=== PATIENT | female | born 1965 | race American Indian/Alaskan Native ===

== ENCOUNTER 2020-06-05 16:16 | Inpatient (IN) | payer MEDICARE ==
--- NOTE | 2020-06-05 17:03 | Event Note ---
ED Screening Note Date of service: 06/05/20 Time: 16:58 ED Screening Note: This is a 55-year-old diabetic who presents to ED from Dr. HINDS's office for evaluation of possible diabetic infected left big toe. Patient states she has been having pain to the toe radiating up forwards and swelling to the whole foot. This initial assessment/diagnostic orders/clinical plan/treatment(s) is/are subject to change based on patients health status, clinical progression and re- assessment by fellow clinical providers in the ED. Further treatment and workup at subsequent clinical providers discretion. Patient/guardian urged not to elope from the ED as their condition may be serious if not clinically assessed and managed. Initial orders include: Labs ordered, IV meds and antibiotic To be evaluated by the ED
[2020-06-05] MEDS ORDERED: VANCOMYCIN/NS 1 GM/250 ML 1 GM/250 ML BAG IV ONE (17:48)
[2020-06-05 17:51] LABS: Basophils % (Auto) 0.6 % (0.0-1.8); Eosinophils # (Auto) 0.2 K/mm3 (0.0-0.4); Eosinophils % (Auto) 2.6 % (0.0-4.3); Hematocrit 34.5 % (30.3-42.9); Hemoglobin 11.1 gm/dl (10.1-14.3); Lymphocytes # (Auto) 2.2 K/mm3 (1.2-5.4); Lymphocytes % (Auto) 33.1 % (13.4-35.0); Mean Corpuscular HGB Conc 32 % (30-34); Mean Corpuscular Volume 89 fl (79-97); Monocytes # (Auto) 0.6 K/mm3 (0.0-0.8); Monocytes % (Auto) 8.4 % (0.0-7.3); Platelet Count 333 K/mm3 (140-440); Red Blood Count 3.89 M/mm3 (3.65-5.03); Red Cell Distribution Width 14.7 % (13.2-15.2)
--- NOTE | 2020-06-05 17:54 | Emergency Department Report ---
ED General Adult HPI - General Chief complaint: Wound/Laceration Stated complaint: RIGHT BIG TOE INFECTION Time Seen by Provider: 06/05/20 17:47 Source: patient Mode of arrival: Ambulatory Limitations: No Limitations - History of Present Illness Initial comments: Patient presents to the emergency department with a chief complaint of right great toe pain. Patient states she is approximately 1 week status post atherosclerotic procedure to open up her arteries and veins in her right leg. Patient states that her ulcer on her right toe was doing well until approximately 2 days ago when it became painful and appeared not to be healing. Patient states he went to her primary care doctor today and upon evaluation she says she was told to get in contact with Dr. Saucedo who did the procedure on the patient. The patient states she believes she has stage III renal disease - Related Data Allergies Allergy/AdvReac Type Severity Reaction Status Date / Time No Known Allergies Allergy Unverified 06/05/20 16:20 ED Review of Systems ROS: Stated complaint: RIGHT BIG TOE INFECTION Other details as noted in HPI Comment: All other systems reviewed and negative Constitutional: denies: chills, fever Eyes: denies: eye pain, eye discharge, vision change ENT: denies: ear pain, throat pain Respiratory: denies: cough, shortness of breath, wheezing Cardiovascular: denies: chest pain, palpitations Endocrine: no symptoms reported Gastrointestinal: denies: abdominal pain, nausea, diarrhea Genitourinary: denies: urgency, dysuria, discharge Musculoskeletal: denies: back pain, joint swelling, arthralgia Skin: denies: rash, lesions Neurological: denies: headache, weakness, paresthesias Psychiatric: denies: anxiety, depression Hematological/Lymphatic: denies: easy bleeding, easy bruising ED Past Medical Hx - Past Medical History Hx Hypertension: Yes Hx Diabetes: Yes - Surgical History Additional Surgical History: FOOT SURGERY TO OPEN VEIN UP IN FOOT - Social History Smoking Status: Never Smoker Substance Use Type: Alcohol ED Physical Exam - General Limitations: No Limitations General appearance: alert, in no apparent distress - Head Head exam: Present: atraumatic, normocephalic - Eye Eye exam: Present: normal appearance, PERRL, EOMI - ENT ENT exam: Present: mucous membranes moist - Neck Neck exam: Present: normal inspection - Respiratory Respiratory exam: Present: normal lung sounds bilaterally. Absent: respiratory distress - Cardiovascular Cardiovascular Exam: Present: regular rate, normal rhythm. Absent: systolic murmur, diastolic murmur, rubs, gallop - GI/Abdominal GI/Abdominal exam: Present: soft, normal bowel sounds. Absent: distended, ten derness - Extremities Exam Extremities exam: Present: normal inspection - Back Exam Back exam: Present: normal inspection - Neurological Exam Neurological exam: Present: alert, oriented X3, CN II-XII intact. Absent: motor sensory deficit - Psychiatric Psychiatric exam: Present: normal affect, normal mood - Skin Skin exam: Present: warm, dry, intact, normal color, other (Patient has an ulcer to the medial aspect of the right great toe with a dry gangrene. There is delayed cap refill to the right great toe. There is also some cellulitis surrounding the ulcer) ED Course Vital Signs 06/05/20 06/05/20 06/05/20 16:23 18:17 18:30 Temperature 98.1 F Pulse Rate 91 H 83 Respiratory 18 18 12 Rate Blood Pressure 182/73 173/81 O2 Sat by Pulse 100 100 Oximetry 06/05/20 06/05/20 19:00 19:30 Temperature Pulse Rate 85 82 Respiratory 12 21 Rate Blood Pressure 171/84 169/90 O2 Sat by Pulse 100 100 Oximetry ED Medical Decision Making - Lab Data Result diagrams: 06/05/20 17:01 06/05/20 17:01 Lab Results 06/05/20 06/05/20 06/05/20 Range/Units 17:01 17:01 17:01 WBC 6.7 (4.5-11.0) K/mm3 RBC 3.89 (3.65-5.03) M/mm3 Hgb 11.1 (10.1-14.3) gm/dl Hct 34.5 (30.3-42.9) % MCV 89 (79-97) fl MCH 29 (28-32) pg MCHC 32 (30-34) % RDW 14.7 (13.2-15.2) % Plt Count 333 (140-440) K/mm3 Lymph % (Auto) 33.1 (13.4-35.0) % [place] % (Auto) 8.4 H (0.0-7.3) % Eos % (Auto) 2.6 (0.0-4.3) % Baso % (Auto) 0.6 (0.0-1.8) % Lymph # (Auto) 2.2 (1.2-5.4) K/mm3 [place] # (Auto) 0.6 (0.0-0.8) K/mm3 Eos # (Auto) 0.2 (0.0-0.4) K/mm3 Baso # (Auto) 0.0 (0.0-0.1) K/mm3 Seg Neutrophils % 55.3 (40.0-70.0) % Seg Neutrophils # 3.7 (1.8-7.7) K/mm3 Sodium 141 (137-145) mmol/L Potassium 4.6 (3.6-5.0) mmol/L Chloride 105.0 (98-107) mmol/L Carbon Dioxide 24 (22-30) mmol/L Anion Gap 17 mmol/L BUN 46 H (7-17) mg/dL Creatinine 2.3 H (0.6-1.2) mg/dL Estimated GFR 27 ml/min BUN/Creatinine Ratio 20 % Glucose 285 H (65-100) mg/dL Lactic Acid 1.30 (0.7-2.0) mmol/L Calcium 9.2 (8.4-10.2) mg/dL Total Bilirubin 0.30 (0.1-1.2) mg/dL AST 18 (5-40) units/L ALT 42 (7-56) units/L Alkaline Phosphatase 100 (35-129) units/L Total Protein 6.5 (6.3-8.2) g/dL Albumin 3.6 L (3.9-5) g/dL Albumin/Globulin Ratio 1.2 % - Radiology Data Radiology results: report reviewed - Medical Decision Making Spoke with Dr. Adrian the patient was discussed Patient will be admitted for IV antibiotics and for a possible vascular procedure during admission Critical care attestation.: If time is entered above; I have spent that time in minutes in the direct care of this critically ill patient, excluding procedure time. ED Disposition Clinical Impression: Dry gangrene, Cellulitis of great toe of right foot Disposition: DC- TO HOME OR SELFCARE Is pt being admited?: Yes Does the pt Need Aspirin: No Condition: Fair Referrals: SUZANNA JOSEPH [Other] - 3-5 Days
[2020-06-05] MEDS ORDERED: SODIUM CHLORIDE 0.9% 1000 ML 1,000 ML IV SCH (18:00)
[2020-06-05 18:11] LABS: Albumin 3.6 g/dL (3.9-5); Calcium 9.2 mg/dL (8.4-10.2)
--- NOTE | 2020-06-05 18:28 | XRay Report ---
XR foot 2V RT INDICATION / CLINICAL INFORMATION: great toe osteo. COMPARISON: None available FINDINGS: There is soft tissue swelling of the dorsum of the foot and involving the great toe, greatest at the medial aspect of the first MTP joint. No discrete skin ulceration is identified. There is hallux valg us with osteoarthritis of the first MTP as well as scattered IP joints. No aggressive cortical destru ctive changes identified. Lisfranc interval is preserved. IMPRESSION: Soft tissue swelling of the dorsum of the foot and about the right great toe. No radiogra phic evidence of osteomyelitis at this time. Signer Name: Jonatan Leavitt MD Signed: 06/05/2020 6:23 PM Workstation Name: [id number]
[2020-06-05] MEDS ORDERED: ACETAMINOPHEN 325 MG TAB PO PRN (22:09)
[2020-06-05] MEDS ORDERED: ONDANSETRON 4 MG/2 ML INJ IV PRN (22:09)
[2020-06-05] MEDS ORDERED: DEXTROSE 50% IN WATER (25GM) 50 ML SYRINGE IV PRN ×2 (22:09→22:13)
--- NOTE | 2020-06-05 22:18 | History and Physical Report ---
History of Present Illness Date of examination: 06/05/20 Chief complaint: Right great toe infection Peripheral vascular disease History of present illness: 55 years old female with history of diabetes and hypertension , chronic kidney disease stage III was brought to the hospital of right great toe pain. Patient is status post atherosclerotic procedure to open up her arteries and veins in her right leg about 1 week ago. Patient states that her ulcer on her right toe was doing well until approximately 2 days ago when it became painful and appeared not to be healing. Patient states he went to her primary care doctor today and upon evaluation she says she was told to get in contact with Dr. Saucedo who did the procedure on the patient. Past History Past Medical History: diabetes, hypertension, PVD Medications and Allergies Allergies Allergy/AdvReac Type Severity Reaction Status Date / Time No Known Allergies Allergy Unverified 06/05/20 16:20 Active Meds: Active Medications Acetaminophen (Acetaminophen 325 Mg Tab) 650 mg PO Q4H PRN PRN Reason: Pain MILD(1-3)/Fever >100.5/[place] Dextrose (Dextrose 50% In Water (25gm) 50 Ml Syringe) 50 ml IV Q30MIN PRN; Protocol PRN Reason: Hypoglycemia Dextrose (Dextrose 50% In Water (25gm) 50 Ml Syringe) 50 ml IV Q30MIN PRN; Protocol PRN Reason: Hypoglycemia Famotidine (Famotidine 20 Mg Tab) 20 mg PO BID ERNIE Heparin Sodium (Porcine) (Heparin 5,000 Unit/1 Ml Vial) 5,000 unit SUB-Q Q8HR ERNIE Sodium Chloride (Nacl 0.9% 1000 Ml) 1,000 mls @ 150 mls/hr IV DIRECT ERNIE Last Admin: 06/05/20 18:52 Dose: 150 mls/hr Documented by: Sodium Chloride (Nacl 0.45% 1000 Ml) 1,000 mls @ 100 mls/hr IV DIRECT ERNIE Piperacillin Sod/Tazobactam Sod (Zosyn/Ns 3.375gm/50ml) 3.375 gm in 50 mls @ 100 mls/hr IV Q8H ERNIE; Protocol Vancomycin HCl (Vancomycin/Ns 1 Gm/250 Ml) 1 gm in 250 mls @ 166.667 mls/hr IV Q12H ERNIE; Protocol Morphine Sulfate (Morphine 2 Mg/1 Ml Inj) 2 mg IV Q4H PRN PRN Reason: Pain, Moderate (4-6) Ondansetron HCl (Ondansetron 4 Mg/2 Ml Inj) 4 mg IV Q8H PRN PRN Reason: Nausea And Vomiting Sodium Chloride (Sodium Chloride 0.9% 10 Ml Flush Syringe) 10 ml IV BID ERNIE Sodium Chloride (Sodium Chloride 0.9% 10 Ml Flush Syringe) 10 ml IV PRN PRN PRN Reason: LINE FLUSH Review of Systems Integumentary: sores, wounds, foot/leg ulcers Exam - Constitutional Vitals: Temp Pulse Resp BP Pulse Ox 98.1 F 82 21 169/90 100 06/05/20 16:23 06/05/20 19:30 06/05/20 19:30 06/05/20 19:30 06/05/20 19:30 General appearance: Present: no acute distress, well-nourished - EENT Eyes: Present: PERRL ENT: hearing intact, clear oral mucosa - Neck Neck: Present: supple, normal ROM - Respiratory Respiratory effort: normal Respiratory: bilateral: CTA - Cardiovascular Heart Sounds: Present: S1 & S2. Absent: rub, click - Extremities Extremities: pulses symmetrical, No edema, abnormal (Right great toe ulcer) Peripheral Pulses: within normal limits - Abdominal General gastrointestinal: Present: soft, non-tender, non-distended, normal bowel sounds Female genitourinary: Present: normal - Integumentary Integumentary: Present: clear, warm, dry - Musculoskeletal Musculoskeletal: gait normal, strength equal bilaterally - Psychiatric Psychiatric: appropriate mood/affect, intact judgment & insight - Neurologic Neurologic: CNII-XII intact, moves all extremities Results - Labs CBC & Chem 7: 06/05/20 17:01 06/05/20 17:01 Labs: Laboratory Last Values WBC 6.7 K/mm3 (4.5-11.0) 06/05/20 17: RBC 3.89 M/mm3 (3.65-5.03) 06/05/20 17:01 Hgb 11.1 gm/dl (10.1-14.3) 06/05/20 17:01 Hct 34.5 % (30.3-42.9) 06/05/20 17:01 MCV 89 fl (79-97) 06/05/20 17:01 MCH 29 pg (28-32) 06/05/20 17:01 MCHC 32 % (30-34) 06/05/20 17:01 RDW 14.7 % (13.2-15.2) 06/05/20 17:01 Plt Count 333 K/mm3 (140-440) 06/05/20 17:01 Lymph % (Auto) 33.1 % (13.4-35.0) 06/05/20 17:01 [place] % (Auto) 8.4 % (0.0-7.3) H 06/05/20 17:01 Eos % (Auto) 2.6 % (0.0-4.3) 06/05/20 17:01 Baso % (Auto) 0.6 % (0.0-1.8) 06/05/20 17:01 Lymph # (Auto) 2.2 K/mm3 (1.2-5.4) 06/05/20 17:01 [place] # (Auto) 0.6 K/mm3 (0.0-0.8) 06/05/20 17:01 Eos # (Auto) 0.2 K/mm3 (0.0-0.4) 06/05/20 17:01 Baso # (Auto) 0.0 K/mm3 (0.0-0.1) 06/05/20 17:01 Seg Neutrophils % 55.3 % (40.0-70.0) 06/05/20 17:01 Seg Neutrophils # 3.7 K/mm3 (1.8-7.7) 06/05/20 17:01 Sodium 141 mmol/L (137-145) 06/05/20 17:01 Potassium 4.6 mmol/L (3.6-5.0) 06/05/20 17:01 Chloride 105.0 mmol/L (98-107) 06/05/20 17:01 Carbon Dioxide 24 mmol/L (22-30) 06/05/20 17:01 Anion Gap 17 mmol/L 06/05/20 17:01 BUN 46 mg/dL (7-17) H 06/05/20 17:01 Creatinine 2.3 mg/dL (0.6-1.2) H 06/05/20 17:01 Estimated GFR 27 ml/min 06/05/20 17:01 BUN/Creatinine Ratio 20 % 06/05/20 17:01 Glucose 285 mg/dL (65-100) H 06/05/20 17:01 Lactic Acid 1.30 mmol/L (0.7-2.0) 06/05/20 17:01 Calcium 9.2 mg/dL (8.4-10.2) 06/05/20 17:01 Total Bilirubin 0.30 mg/dL (0.1-1.2) 06/05/20 17:01 AST 18 units/L (5-40) 06/05/20 17:01 ALT 42 units/L (7-56) 06/05/20 17:01 Alkaline Phosphatase 100 units/L (35-129) 06/05/20 17:01 Total Protein 6.5 g/dL (6.3-8.2) 06/05/20 17:01 Albumin 3.6 g/dL (3.9-5) L 06/05/20 17:01 Albumin/Globulin Ratio 1.2 % 06/05/20 17:01 Microbiology: Microbiology 06/05/20 17:57 Peripheral/Venous Blood Culture - Preliminary Culture in Progress 06/05/20 17:57 Peripheral/Venous Blood Culture - Preliminary Culture in Progress Assessment and Plan - Patient Problems (1) Cellulitis of great toe of right foot Current Visit: Yes Status: Acute Plan to address problem: Admit patient to the medical floor. Zosyn 3.375 g IV every 8 hours and vancomycin 1 g IV every 12 hours. We do the blood culture wound culture. We also consult vascular surgeon as well as wound care doctor. Heparin 5000 units subcu every 8 hours for DVT prophylaxis and Pepcid 20 mg p.o. twice daily for GI prophylaxis. Recheck CBC BMP in the morning (2) Dry gangrene Current Visit: Yes Status: Acute Plan to address problem: Zosyn 3.375 g IV every 8 hours and vancomycin 1 g IV every 12 hours. We do the blood culture wound culture. We also consult vascular surgeon as well as wound care doctor. Heparin 5000 units subcu every 8 hours for DVT prophylaxis and Pepcid 20 mg p.o. twice daily for GI prophylaxis. Recheck CBC BMP in the morning (3) Diabetes type 2, controlled Current Visit: Yes Status: Acute Plan to address problem: 1800 kcal ADA diet. We also put the patient on Humalog moderate dose sliding scale Accu-Chek before meals and at bedtime. Will consult diabetic education. Recheck CBC BMP in the morning. (4) Hypertension Current Visit: Yes Status: Acute Plan to address problem: We will monitor the blood pressure closely. We put the patient on hydralazine 10 mg IV every 6 hours as needed.
[2020-06-05] MEDS ORDERED: hydrALAZINE 20 MG/1 ML INJ IV PRN ×2 (22:21→22:45)
[2020-06-05] MEDS: MORPHINE 2 MG/1 ML INJ IV PRN (22:51)
[2020-06-05] MEDS ORDERED: PIPERACILLIN/TAZOBACTAM 3.375 3.375 GM/50 ML BAG IV SCH (23:00)
[2020-06-05] MEDS ORDERED: VANCOMYCIN PHARMACY TO DOSE IV SCH (23:00)
[2020-06-05] MEDS ORDERED: VANCOMYCIN/NS 1 GM/250 ML 1 GM/250 ML BAG IV SCH (23:00)
--- NOTE | 2020-06-05 23:31 | Event Note ---
Date: 06/05/20 Reviewed patient information. We will see the patient tomorrow, but in the interim, please obtain ID consult. Vancomycin and zosyn is a very nephrotoxic combination. ID will probably replace vancomycin with linezolid to decrease nephrotoxicity.
[2020-06-06] MEDS: CILOSTAZOL 100 MG TAB PO SCH ×3 (01:32→21:32)
[2020-06-06] MEDS: SODIUM CHLORIDE 0.45% 1000 ML 1,000 ML IV SCH (01:33)
[2020-06-06] MEDS: MORPHINE 2 MG/1 ML INJ IV PRN ×3 (03:26→22:02)
[2020-06-06] MEDS: HEPARIN 5,000 UNIT/1 ML VIAL SUB-Q SCH ×3 (05:38→21:34)
[2020-06-06 06:18] LABS: Basophils % (Auto) 0.6 % (0.0-1.8); Eosinophils # (Auto) 0.2 K/mm3 (0.0-0.4); Eosinophils % (Auto) 3.1 % (0.0-4.3); Hematocrit 30.6 % (30.3-42.9); Hemoglobin 10.1 gm/dl (10.1-14.3); Lymphocytes # (Auto) 2.5 K/mm3 (1.2-5.4); Lymphocytes % (Auto) 40.9 % (13.4-35.0); Mean Corpuscular HGB Conc 33 % (30-34); Mean Corpuscular Volume 88 fl (79-97); Monocytes # (Auto) 0.6 K/mm3 (0.0-0.8); Monocytes % (Auto) 9.5 % (0.0-7.3); Platelet Count 296 K/mm3 (140-440); Red Blood Count 3.48 M/mm3 (3.65-5.03); Red Cell Distribution Width 14.6 % (13.2-15.2)
[2020-06-06 06:34] LABS: Calcium 8.3 mg/dL (8.4-10.2)
[2020-06-06] MEDS ORDERED: VANCOMYCIN 1,500 MG in SODIUM CHLORIDE 0.9% 500 ML 500 ML IV SCH (08:00)
[2020-06-06] MEDS: PANTOPRAZOLE 40 MG TAB PO SCH (08:50)
[2020-06-06] MEDS: INSULIN LISPRO 100 UNIT/ML SUB-Q SCH ×4 (08:50→23:54)
[2020-06-06] MEDS ORDERED: metroNIDAZOLE/NS 500 MG/100 ML 500 MG/100 ML BAG IV SCH (09:00)
[2020-06-06] MEDS: CEFEPIME/NS 1 GM/100 ML 1 GM/100 ML BAG IV SCH ×2 (09:55→21:34)
[2020-06-06] MEDS: CLOPIDOGREL 75 MG TAB PO SCH (09:56)
[2020-06-06] MEDS: ASPIRIN EC 81 MG TAB PO SCH (09:56)
[2020-06-06] MEDS ORDERED: FAMOTIDINE 20 MG TAB PO SCH (10:00)
[2020-06-06] MEDS ORDERED: VANCOMYCIN/NS 1 GM/250 ML 1 GM/250 ML BAG IV ONE (10:00)
[2020-06-06] MEDS ORDERED: FAMOTIDINE 10 MG TAB PO SCH (10:00)
--- NOTE | 2020-06-06 10:47 | Consultation ---
History of Present Illness Consult date: 06/06/20 Chief complaint: Right great toe pain - History of present illness History of present illness: 55 yo diabetic female who is about 10 days s/p a revascularization procedure to her RLE by Dr. Saucedo. About 5 days ago, she began having right great toe pain and noticed some discoloration of the right great toe. Her last A1c was in the 8's. She does not smoke. Past History Past Medical History: diabetes, hypertension, PVD Medications and Allergies Allergies Allergy/AdvReac Type Severity Reaction Status Date / Time No Known Allergies Allergy Unverified 06/05/20 16:20 Active Meds: Active Medications Acetaminophen (Acetaminophen 325 Mg Tab) 650 mg PO Q4H PRN PRN Reason: Pain MILD(1-3)/Fever >100.5/[place] Aspirin (Aspirin Ec 81 Mg Tab) 81 mg PO QDAY [facility] Last Admin: 06/06/20 09:56 Dose: 81 mg Documented by: Cilostazol (Cilostazol 100 Mg Tab) 100 mg PO BID [facility] Last Admin: 06/06/20 09:56 Dose: 100 mg Documented by: Clopidogrel Bisulfate (Clopidogrel 75 Mg Tab) 75 mg PO QDAY [facility] Last Admin: 06/06/20 09:56 Dose: 75 mg Documented by: Dextrose (Dextrose 50% In Water (25gm) 50 Ml Syringe) 50 ml IV Q30MIN PRN; Protocol PRN Reason: Hypoglycemia Heparin Sodium (Porcine) (Heparin 5,000 Unit/1 Ml Vial) 5,000 unit SUB-Q Q8HR [facility] Last Admin: 06/06/20 05:38 Dose: 5,000 unit Documented by: Hydralazine HCl (Hydralazine 20 Mg/1 Ml Inj) 5 mg IV Q30MIN PRN PRN Reason: Hypertension Sodium Chloride (Nacl 0.45% 1000 Ml) 1,000 mls @ 100 mls/hr IV DIRECT ERNIE Last Admin: 06/06/20 01:33 Dose: 100 mls/hr Documented by: Vancomycin HCl (Vancomycin/Ns 1 Gm/250 Ml) 1 gm in 250 mls @ 167.007 mls/hr IV ONCE ONE Stop: 06/06/20 11:29 Cefepime HCl (Cefepime/Ns 1 Gm/100 Ml) 1 gm in 100 mls @ 200 mls/hr IV Q12H ERNIE; Protocol Last Admin: 06/06/20 09:55 Dose: 200 mls/hr Documented by: Metronidazole (Flagyl 500 Mg/100 Ml) 500 mg in 100 mls @ 100 mls/hr IV Q8H [facility]; Protocol Last Admin: 06/06/20 08:58 Dose: 100 mls/hr Documented by: Insulin Human Lispro (Insulin Lispro 100 Unit/Ml) 0 unit SUB-Q ACHS [facility]; Protocol Last Admin: 06/06/20 08:50 Dose: Not Given Documented by: Morphine Sulfate (Morphine 2 Mg/1 Ml Inj) 2 mg IV Q4H PRN PRN Reason: Pain, Moderate (4-6) Last Admin: 06/06/20 03:26 Dose: 2 mg Documented by: Ondansetron HCl (Ondansetron 4 Mg/2 Ml Inj) 4 mg IV Q8H PRN PRN Reason: Nausea And Vomiting Pantoprazole Sodium (Pantoprazole 40 Mg Tab) 40 mg PO QDAC [facility] Last Admin: 06/06/20 08:50 Dose: 40 mg Documented by: Sodium Chloride (Sodium Chloride 0.9% 10 Ml Flush Syringe) 10 ml IV BID [facility] Last Admin: 06/06/20 09:55 Dose: 10 ml Documented by: Sodium Chloride (Sodium Chloride 0.9% 10 Ml Flush Syringe) 10 ml IV PRN PRN PRN Reason: LINE FLUSH Review of Systems All systems: negative (none) Exam Vital Signs Temp Pulse Resp BP Pulse Ox 98.1 F 91 H 18 182/73 100 06/05/20 16:23 06/05/20 16:23 06/05/20 16:23 06/05/20 16:23 06/05/20 16:23 - General physical appearance Positive: well developed, well nourished, no distress - Eyes Positive: PERRL, normal occular movement - ENT Positive: normal pinna, normal nares, normal mucosa, no hearing loss, no congestion - Neck Positive: no masses, no bruits, trachea midline, no venous distension - Respiratory Positive: normal expansion, normal respiratory effort, clear to auscultation - Cardiovascular Rhythm: regular Heart Sounds: Present: S1 & S2. Absent: rub, click - Extremities Extremities: no ischemia, pulses symmetrical, No edema Peripheral Pulses: abnormal (Right DP and PT pulses are non-palpable.) - Breasts Breasts: normal, no mass, no skin changes - Abdomen Abdomen: Present: soft, bowel sounds normal. Absent: tender, distended Hernia: none - Genitourinary Male Genitourinary: normal Female Genitourinary: normal - Integumentary no rash, no growths, no abnormal pigmentation, other (There is a 3 X 1 cm ischemic appearing area of skin/callus over the medial right great toe. There is no associated drainage, cellulitis or fluctuance. The right great toe is tender to touch.) - Neurologic Neurologic: alert and oriented to time, place and person, motor strength and sensation are grossly intact - Musculoskeletal normal gait, normal posture - Psychiatric Psychiatric: appropriate mood/affect, intact judgment & insight Results - Labs 06/06/20 05:57 06/06/20 05:57 Abnormal lab results 06/05/20 06/05/20 06/05/20 Range/Units 17:01 17:01 22:57 RBC (3.65-5.03) M/mm3 Lymph % (Auto) (13.4-35.0) % [place] % (Auto) 8.4 H (0.0-7.3) % Chloride (98-107) mmol/L BUN 46 H (7-17) mg/dL Creatinine 2.3 H (0.6-1.2) mg/dL Glucose 285 H (65-100) mg/dL POC Glucose 250 H (70-105) mg/dL Calcium (8.4-10.2) mg/dL Albumin 3.6 L (3.9-5) g/dL 06/06/20 06/06/20 06/06/20 Range/Units 05:57 05:57 08:16 RBC 3.48 L (3.65-5.03) M/mm3 Lymph % (Auto) 40.9 H (13.4-35.0) % [place] % (Auto) 9.5 H (0.0-7.3) % Chloride 108.9 H (98-107) mmol/L BUN 36 H (7-17) mg/dL Creatinine 2.2 H (0.6-1.2) mg/dL Glucose 154 H (65-100) mg/dL POC Glucose 149 H (70-105) mg/dL Calcium 8.3 L (8.4-10.2) mg/dL Albumin (3.9-5) g/dL Diabetes panel 06/05/20 06/06/20 Range/Units 17:01 05:57 Sodium 141 141 (137-145) mmol/L Potassium 4.6 4.0 (3.6-5.0) mmol/L Chloride 105.0 108.9 H (98-107) mmol/L Carbon Dioxide 24 25 (22-30) mmol/L BUN 46 H 36 H (7-17) mg/dL Creatinine 2.3 H 2.2 H (0.6-1.2) mg/dL Glucose 285 H 154 H (65-100) mg/dL Calcium 9.2 8.3 L (8.4-10.2) mg/dL AST 18 (5-40) units/L ALT 42 (7-56) units/L Alkaline Phosphatase 100 (35-129) units/L Total Protein 6.5 (6.3-8.2) g/dL Albumin 3.6 L (3.9-5) g/dL Calcium panel 06/05/20 06/06/20 Range/Units 17:01 05:57 Calcium 9.2 8.3 L (8.4-10.2) mg/dL Albumin 3.6 L (3.9-5) g/dL Pituitary panel 06/05/20 06/06/20 Range/Units 17:01 05:57 Sodium 141 141 (137-145) mmol/L Potassium 4.6 4.0 (3.6-5.0) mmol/L Chloride 105.0 108.9 H (98-107) mmol/L Carbon Dioxide 24 25 (22-30) mmol/L BUN 46 H 36 H (7-17) mg/dL Creatinine 2.3 H 2.2 H (0.6-1.2) mg/dL Glucose 285 H 154 H (65-100) mg/dL Calcium 9.2 8.3 L (8.4-10.2) mg/dL Adrenal panel 06/05/20 06/06/20 Range/Units 17:01 05:57 Sodium 141 141 (137-145) mmol/L Potassium 4.6 4.0 (3.6-5.0) mmol/L Chloride 105.0 108.9 H (98-107) mmol/L Carbon Dioxide 24 25 (22-30) mmol/L BUN 46 H 36 H (7-17) mg/dL Creatinine 2.3 H 2.2 H (0.6-1.2) mg/dL Glucose 285 H 154 H (65-100) mg/dL Calcium 9.2 8.3 L (8.4-10.2) mg/dL Total Bilirubin 0.30 (0.1-1.2) mg/dL AST 18 (5-40) units/L ALT 42 (7-56) units/L Alkaline Phosphatase 100 (35-129) units/L Total Protein 6.5 (6.3-8.2) g/dL Albumin 3.6 L (3.9-5) g/dL - Imaging Additional studies: Right foot x-ray was reviewed. Assessment and Plan - Patient Problems (1) Type 2 diabetes mellitus with foot ulcer Current Visit: Yes Status: Acute Plan to address problem: 1) Vascular evaluation by Dr. Saucedo. 2) Do not feel an MRI is indicated at this time. 3) Pt may need debridement of her right great toe. This will be considered after her vascular status is evaluated. 4) Strict DM management.
--- NOTE | 2020-06-06 12:48 | Progress Note ---
Assessment and Plan Assessment and plan: (1) Cellulitis of great toe of right foot Continue vancomycin, cefepime and Flagyl Wound culture Vascular surgery following ID consulted (2) Dry gangrene Current Visit: Yes Status: Acute Plan to address problem: Vascular surgery on board (3) Diabetes type 2, controlled Current Visit: Yes Status: Acute Plan to address problem: Insulin regimen (4) Hypertension Current Visit: Yes Status: Acute Plan to address problem: Hydralazine as needed History Interval history: No new complaints this AM Antibiotics adjusted Hospitalist Physical - Physical exam Narrative exam: VITAL SIGNS: Reviewed. GENERAL: Awake HEAD: No signs of head trauma. EYES: Pupils are equal. Extraocular motions intact. MOUTH: Oropharynx is normal. NECK: No adenopathy, no JVD. CHEST: Chest with diminished breath sounds bilaterally. No wheezes, rales, or rhonchi. CARDIAC: normal S1 and S2, without murmurs, gallops, or rubs. ABDOMEN: Soft, non tender and non distended. No rebound or guarding, and no masses palpated. Bowel Sounds normal. MUSCULOSKELETAL: No edema NEUROLOGIC EXAM: Alert and oriented x3. No focal neurologic deficits SKIN: No obvious lesions - Constitutional Vitals: Temp Pulse Resp BP Pulse Ox 97.9 F 90 20 149/65 100 06/06/20 10:17 06/06/20 10:17 06/06/20 10:17 06/06/20 10:17 06/06/20 10:17 Results - Labs CBC & Chem 7: 06/06/20 05:57 06/06/20 05:57 Labs: Laboratory Last Values WBC 6.1 K/mm3 (4.5-11.0) 06/06/20 05:57 RBC 3.48 M/mm3 (3.65-5.03) L 06/06/20 05:57 Hgb 10.1 gm/dl (10.1-14.3) 06/06/20 05:57 Hct 30.6 % (30.3-42.9) 06/06/20 05:57 MCV 88 fl (79-97) 06/06/20 05:57 MCH 29 pg (28-32) 06/06/20 05:57 MCHC 33 % (30-34) 06/06/20 05:57 RDW 14.6 % (13.2-15.2) 06/06/20 05:57 Plt Count 296 K/mm3 (140-440) 06/06/20 05:57 Lymph % (Auto) 40.9 % (13.4-35.0) H 06/06/20 05:57 [place] % (Auto) 9.5 % (0.0-7.3) H 06/06/20 05:57 Eos % (Auto) 3.1 % (0.0-4.3) 06/06/20 05:57 Baso % (Auto) 0.6 % (0.0-1.8) 06/06/20 05:57 Lymph # (Auto) 2.5 K/mm3 (1.2-5.4) 06/06/20 05:57 [place] # (Auto) 0.6 K/mm3 (0.0-0.8) 06/06/20 05:57 Eos # (Auto) 0.2 K/mm3 (0.0-0.4) 06/06/20 05:57 Baso # (Auto) 0.0 K/mm3 (0.0-0.1) 06/06/20 05:57 Seg Neutrophils % 45.9 % (40.0-70.0) 06/06/20 05:57 Seg Neutrophils # 2.8 K/mm3 (1.8-7.7) 06/06/20 05:57 Sodium 141 mmol/L (137-145) 06/06/20 05:57 Potassium 4.0 mmol/L (3.6-5.0) 06/06/20 05:57 Chloride 108.9 mmol/L (98-107) H 06/06/20 05:57 Carbon Dioxide 25 mmol/L (22-30) 06/06/20 05:57 Anion Gap 11 mmol/L 06/06/20 05:57 BUN 36 mg/dL (7-17) H 06/06/20 05:57 Creatinine 2.2 mg/dL (0.6-1.2) H 06/06/20 05:57 Estimated GFR 28 ml/min 06/06/20 05:57 BUN/Creatinine Ratio 16 % 06/06/20 05:57 Glucose 154 mg/dL (65-100) H 06/06/20 05:57 POC Glucose 241 mg/dL (70-105) H 06/06/20 11:35 Lactic Acid 1.30 mmol/L (0.7-2.0) 06/05/20 17:01 Calcium 8.3 mg/dL (8.4-10.2) L 06/06/20 05:57 Total Bilirubin 0.30 mg/dL (0.1-1.2) 06/05/20 17:01 AST 18 units/L (5-40) 06/05/20 17:01 ALT 42 units/L (7-56) 06/05/20 17:01 Alkaline Phosphatase 100 units/L (35-129) 06/05/20 17:01 Total Protein 6.5 g/dL (6.3-8.2) 06/05/20 17:01 Albumin 3.6 g/dL (3.9-5) L 06/05/20 17:01 Albumin/Globulin Ratio 1.2 % 06/05/20 17:01 Microbiology: Microbiology 06/05/20 17:57 Peripheral/Venous Blood Culture - Preliminary Culture in Progress 06/05/20 17:57 Peripheral/Venous Blood Culture - Preliminary Culture in Progress Bowman/IV: Voiding Method External Female Catheter Active Medications - Current Medications Current Medications: Generic Name Dose Route Start Last Admin Trade Name Freq PRN Reason Stop Dose Admin Acetaminophen 650 mg 06/05/20 22:09 Acetaminophen 325 Mg Tab PO Q4H PRN Pain MILD(1-3)/Fever >100.5/[place] Aspirin 81 mg 06/06/20 10:00 06/06/20 09:56 Aspirin Ec 81 Mg Tab PO 81 mg QDAY ERNIE Administration Cilostazol 100 mg 06/05/20 23:45 06/06/20 09:56 Cilostazol 100 Mg Tab PO 100 mg BID ERNIE Administration Clopidogrel Bisulfate 75 mg 06/06/20 10:00 06/06/20 09:56 Clopidogrel 75 Mg Tab PO 75 mg QDAY ERNIE Administration Dextrose 50 ml 06/05/20 22:09 Dextrose 50% In Water (25gm) 50 Ml Syringe IV Q30MIN PRN Hypoglycemia Protocol Heparin Sodium (Porcine) 5,000 unit 06/06/20 06:00 06/06/20 05:38 Heparin 5,000 Unit/1 Ml Vial SUB-Q 5,000 unit Q8HR ERNIE Administration Hydralazine HCl 5 mg 06/05/20 22:45 Hydralazine 20 Mg/1 Ml Inj IV Q30MIN PRN Hypertension Sodium Chloride 1,000 mls @ 100 mls/hr 06/05/20 23:00 06/06/20 01:33 Nacl 0.45% 1000 Ml IV 100 mls/hr DIRECT ERNIE Administration Cefepime HCl 1 gm in 100 mls @ 200 mls/hr 06/06/20 09:00 06/06/20 09:55 Cefepime/Ns 1 Gm/100 Ml IV 200 mls/hr Q12H ERNIE Administration Protocol Metronidazole 500 mg in 100 mls @ 100 mls/hr 06/06/20 09:00 06/06/20 08:58 Flagyl 500 Mg/100 Ml IV 100 mls/hr Q8H ERNIE Administration Protocol Insulin Human Lispro 0 unit 06/06/20 07:30 06/06/20 08:50 Insulin Lispro 100 Unit/Ml SUB-Q Not Given ACHS ERNIE Protocol Morphine Sulfate 2 mg 06/05/20 22:09 06/06/20 03:26 Morphine 2 Mg/1 Ml Inj IV 2 mg Q4H PRN Administration Pain, Moderate (4-6) Ondansetron HCl 4 mg 06/05/20 22:09 Ondansetron 4 Mg/2 Ml Inj IV Q8H PRN Nausea And Vomiting Pantoprazole Sodium 40 mg 06/06/20 07:30 06/06/20 08:50 Pantoprazole 40 Mg Tab PO 40 mg QDAC ERNIE Administration Sodium Chloride 10 ml 06/06/20 10:00 06/06/20 09:55 Sodium Chloride 0.9% 10 Ml Flush Syringe IV 10 ml BID ERNIE Administration Sodium Chloride 10 ml 06/05/20 22:09 Sodium Chloride 0.9% 10 Ml Flush Syringe IV PRN PRN LINE FLUSH Nutrition/Malnutrition Assess - Dietary Evaluation Nutrition/Malnutrition Findings: Nutrition Notes Start: 06/06/20 08:51 Freq: Status: Active Protocol: Document 06/06/20 08:51 CW (Rec: 06/06/20 09:08 CW [id number]) Nutrition Notes Need for Assessment generated from: MD Order,Education Initial or Follow up Assessment Current Diagnosis CKD(stage I-IV),Diabetes, Hypertension Other Pertinent Diagnosis Gangrene Current Diet Consistent Carbohydrate Labs/Tests BUN 36 Cr 2.2 BG 154 Pertinent Medications 1/2 NS at 100 ml/h Insulin(self adminstered) Height 5 ft 5 in Weight 117.2 kg [place] Body Weight (kg) 56.81 BMI 43.0 Weight Status Morbidly Obese Burn Absent Trauma Absent Skin Integrity/Comment Cellulitis on toe on RLE #1 Nutrition Diagnosis Increased nutrient needs ( specify in comment below) Comments: protein Etiology wound healing As Evidenced by Signs and Symptoms gangrenous wound on RLE Is patient on ventilator? No Is Patient Ambulatory and/or Out of Bed Yes REE-([facility]-ambulatory/OOB) [ 2291.744 [id number]] Kcal/Kg value to use for calculation 15 Approximate Energy Requirements Using 1758 kcal/Kg Calculation Used for Recommendations Kcal/kg Additional Notes protein needs: 104 - 131g (1.2 - 1.5g/kg AdjBW 87kg for wound healing needs) Fluid needs: 1 ml/ kcal or per MD order Nutrition Intervention Change Diet Order: Continue Consistent Carbohydrate diet Add Supplement/Snack (indicate name/kcal Ensure High Protein /protein ) Provides kCal: 160 Provides Protein (gm) 19 Teaching Recipient Patient Teaching Methods Discussion,Handout Goal #1 Maintain PO intake that meets at lest 80% of kcal and protein needs Goal #2 Wound healing Goal #3 Understand importance for Consistent Carbohydrate diet Anticipated Discharge Needs: Consistent Carbohydrate diet and Ensure High Protein QD until wound healed Follow-Up By: 06/10/20 Additional Comments F/U PO intake and ONS tolerance
--- NOTE | 2020-06-06 15:57 | Consultation ---
History of Present Illness - Reason for Consult Consult date: 06/06/20 Leg infection Requesting physician: AAMIR BURNETTE - History of Present Illness The patient is a 55-year-old female with hypertension, diabetes, CKD stage III was admitted to the hospital with complaints of right great toe pain. Patient reports she recently underwent revascularization procedure by Dr. Saucedo as an outpatient. 2 to 3 days prior to admission, her right foot started hurting severely, went to her PCP and was recommended to come to the ER. She otherwise denies any fever. Review of Systems: General: no fevers,chills or rigors HEENT: no new visual disturbance Respiratory: No cough, sputum, hemoptysis or shortness of breath Cardiovascular: No chest pain, syncope Gastrointestinal: No nausea, vomiting or diarrhea Genitourinary: No dysuria or hematuria Musculoskeletal: No new or worsening neck pain or back pain Neurologic: No headaches, seizures Hematologic: No easy bruising or bleeding Endocrine: No night sweats or acute weight loss Skin: negative for rash, jaundice Psychiatric: No suicidal or homicidal ideation Past History Past Medical History: diabetes, hypertension, PVD Medications and Allergies Allergies Allergy/AdvReac Type Severity Reaction Status Date / Time No Known Allergies Allergy Unverified 06/05/20 16:20 Home Medications Medication Instructions Recorded Confirmed Last Taken Type Cholecalciferol (Vitd3)/Vit K2 500 mcg PO DAILY 06/06/20 06/06/20 06/05/20 08:00 History [K2-D3 10,000 Unit Capsule] Ferrous Gluconate 324 MG 324 mg PO DAILY 06/06/20 06/06/20 06/05/20 08:00 History Losartan/Hydrochlorothiazide 100 mg PO DAILY 06/06/20 06/06/20 06/05/20 08:00 History [Losartan-Hctz 100-25 mg Tab] Mecobalamin [B12 Active] 1,000 mcg PO DAILY 06/06/20 06/06/20 06/05/20 08:00 History Metoprolol [Lopressor] 25 mg PO BID 06/06/20 06/06/20 06/05/20 History Njxii-Obhkrvj-Miogushn Tablet 1 unit PO DAILY 06/06/20 06/06/20 06/05/20 08:00 History Rosuvastatin Calcium 40 mg PO HS 06/06/20 06/06/20 06/05/20 21:00 History Semaglutide [Rybelsus] 7 mg PO DAILY 06/06/20 06/06/20 06/05/20 08:00 History Triamterene/Hydrochlorothiazid 37.5 mg PO DAILY 06/06/20 06/06/20 06/05/20 History [Triamterene-Hctz 37.5-25 mg Cp] Active Meds: Active Medications Acetaminophen (Acetaminophen 325 Mg Tab) 650 mg PO Q4H PRN PRN Reason: Pain MILD(1-3)/Fever >100.5/[place] Aspirin (Aspirin Ec 81 Mg Tab) 81 mg PO QDAY [facility] Last Admin: 06/06/20 09:56 Dose: 81 mg Documented by: Cilostazol (Cilostazol 100 Mg Tab) 100 mg PO BID [facility] Last Admin: 06/06/20 09:56 Dose: 100 mg Documented by: Clopidogrel Bisulfate (Clopidogrel 75 Mg Tab) 75 mg PO QDAY [facility] Last Admin: 06/06/20 09:56 Dose: 75 mg Documented by: Dextrose (Dextrose 50% In Water (25gm) 50 Ml Syringe) 50 ml IV Q30MIN PRN; Protocol PRN Reason: Hypoglycemia Heparin Sodium (Porcine) (Heparin 5,000 Unit/1 Ml Vial) 5,000 unit SUB-Q Q8HR [facility] Last Admin: 06/06/20 13:12 Dose: 5,000 unit Documented by: Hydralazine HCl (Hydralazine 20 Mg/1 Ml Inj) 5 mg IV Q30MIN PRN PRN Reason: Hypertension Sodium Chloride (Nacl 0.45% 1000 Ml) 1,000 mls @ 100 mls/hr IV DIRECT [facility] Last Admin: 06/06/20 01:33 Dose: 100 mls/hr Documented by: Cefepime HCl (Cefepime/Ns 1 Gm/100 Ml) 1 gm in 100 mls @ 200 mls/hr IV Q12H [facility]; Protocol Last Admin: 06/06/20 09:55 Dose: 200 mls/hr Documented by: Metronidazole (Flagyl 500 Mg/100 Ml) 500 mg in 100 mls @ 100 mls/hr IV Q8H ERNIE; Protocol Last Admin: 06/06/20 08:58 Dose: 100 mls/hr Documented by: Insulin Human Lispro (Insulin Lispro 100 Unit/Ml) 0 unit SUB-Q ACHS [facility]; Protocol Last Admin: 06/06/20 12:49 Dose: 3 unit Documented by: Morphine Sulfate (Morphine 2 Mg/1 Ml Inj) 2 mg IV Q4H PRN PRN Reason: Pain, Moderate (4-6) Last Admin: 06/06/20 12:53 Dose: 2 mg Documented by: Ondansetron HCl (Ondansetron 4 Mg/2 Ml Inj) 4 mg IV Q8H PRN PRN Reason: Nausea And Vomiting Pantoprazole Sodium (Pantoprazole 40 Mg Tab) 40 mg PO QDAC [facility] Last Admin: 06/06/20 08:50 Dose: 40 mg Documented by: Sodium Chloride (Sodium Chloride 0.9% 10 Ml Flush Syringe) 10 ml IV BID [facility] Last Admin: 06/06/20 09:55 Dose: 10 ml Documented by: Sodium Chloride (Sodium Chloride 0.9% 10 Ml Flush Syringe) 10 ml IV PRN PRN PRN Reason: LINE FLUSH Physical Examination - Physical Exam Narrative exam: Physical Exam: Constitutional: Alert, cooperative. No acute distress Head, Ears, Nose: Normocephalic, atraumatic. External ears, nose normal Eyes: Conjunctivae/corneas clear. No icterus. No ptosis. Neck: Supple, no meningeal signs Cardiovascular: S1, S2 normal. Respiratory: Good air entry, clear to auscultation bilaterally GI: Soft, non-tender; bowel sounds normal. No peritoneal signs Musculoskeletal: Right great toe with superficial ulceration, right foot with mild warmth and tenderness Skin: No rash or abscess Hem/Lymphatic: No palpable cervical or supraclavicular nodes. No lymphangitis Psych: Mood ok. Affect normal Neurological: Awake, alert, oriented. No gross abnormality - Constitutional Vitals: Vital Signs Temp Pulse Resp BP Pulse Ox 97.9 F 90 20 149/65 100 06/06/20 10:17 06/06/20 10:17 06/06/20 10:17 06/06/20 10:17 06/06/20 10:17 Temperature -Last 24 Hours Temperature 97.9 F Temperature 98.4 F Temperature 98.6 F Temperature 98.1 F Results - Labs CBC & Chem 7: 06/06/20 05:57 06/06/20 05:57 Labs: Abnormal lab results 06/05/20 06/05/20 06/05/20 Range/Units 17:01 17:01 22:57 RBC (3.65-5.03) M/mm3 Lymph % (Auto) (13.4-35.0) % [place] % (Auto) 8.4 H (0.0-7.3) % Chloride (98-107) mmol/L BUN 46 H (7-17) mg/dL Creatinine 2.3 H (0.6-1.2) mg/dL Glucose 285 H (65-100) mg/dL POC Glucose 250 H (70-105) mg/dL Calcium (8.4-10.2) mg/dL Albumin 3.6 L (3.9-5) g/dL 06/06/20 06/06/20 06/06/20 Range/Units 05:57 05:57 08:16 RBC 3.48 L (3.65-5.03) M/mm3 Lymph % (Auto) 40.9 H (13.4-35.0) % [place] % (Auto) 9.5 H (0.0-7.3) % Chloride 108.9 H (98-107) mmol/L BUN 36 H (7-17) mg/dL Creatinine 2.2 H (0.6-1.2) mg/dL Glucose 154 H (65-100) mg/dL POC Glucose 149 H (70-105) mg/dL Calcium 8.3 L (8.4-10.2) mg/dL Albumin (3.9-5) g/dL 06/06/20 Range/Units 11:35 RBC (3.65-5.03) M/mm3 Lymph % (Auto) (13.4-35.0) % [place] % (Auto) (0.0-7.3) % Chloride (98-107) mmol/L BUN (7-17) mg/dL Creatinine (0.6-1.2) mg/dL Glucose (65-100) mg/dL POC Glucose 241 H (70-105) mg/dL Calcium (8.4-10.2) mg/dL Albumin (3.9-5) g/dL Assessment and Plan Cultures: 06/05/2020 blood culture: In process A/P: 55-year-old female with hypertension, diabetes, CKD stage III was admitted to the hospital with complaints of right great toe pain. Patient reports she recently underwent revascularization procedure by Dr. Saucedo as an outpatient: #Right foot and great toe cellulitis: Also with underlying vascular insufficiency. No open wound or drainage. Cannot obtain cultures. Treat with empiric antibiotics. Dr. Fink also following. #Peripheral vascular disease: Vascular consulted. #ELIA versus CKD: Renally dose antibiotics. Avoiding vancomycin. #Diabetes mellitus: maintain glycemic control. Recs: -Zosyn and vancomycin discontinued -Empiric IV cefepime plus PO Zyvox for now -Follow-up vascular recs Elizabeth Williamson MD, FACP [facility] ([facility] O: [phone] F: [phone]
--- NOTE | 2020-06-06 17:17 | Consultation ---
History of Present Illness - Reason for Consult Consult date: 06/07/20 PVD with Right Foot Ulceration Requesting physician: ERNESTINE BAEZ - History of Present Illness The patient is a 55 year old female with a history of Peripheal vascular disease and a nonhealing wound of her right first toe. She recently underwent a successful revasularization of her right lower extremity on of last week. She had been soaking her toe at home and presented to her PCP with complaints of increasing pain and worsening of the wound. She presented to the office, with Dr Saucedo, and was referred to the hospital for i.v. antibiotic and definitive care. She continues to complain of tenderness near the ulceration. She denies any drainage, fever, or chills. She has no additional complaints at this time. Past History Past Medical History: diabetes, hypertension, PVD Medications and Allergies Allergies Allergy/AdvReac Type Severity Reaction Status Date / Time No Known Allergies Allergy Unverified 06/05/20 16:20 Home Medications Medication Instructions Recorded Confirmed Last Taken Type Cholecalciferol (Vitd3)/Vit K2 500 mcg PO DAILY 06/06/20 06/06/20 06/05/20 08:00 History [K2-D3 10,000 Unit Capsule] Ferrous Gluconate 324 MG 324 mg PO DAILY 06/06/20 06/06/20 06/05/20 08:00 History Humalog 100 UNITS/ML Kwikpen See Protocol SQ ACHS 06/06/20 06/06/20 06/05/20 21:00 History Insulin Glargine,Hum.rec.anlog 31 units SQ HS 06/06/20 06/06/20 06/05/20 21:00 History [Basaglar Kwikpen U-100] Losartan/Hydrochlorothiazide 100 mg PO DAILY 06/06/20 06/06/20 06/05/20 08:00 History [Losartan-Hctz 100-25 mg Tab] Mecobalamin [B12 Active] 1,000 mcg PO DAILY 06/06/20 06/06/20 06/05/20 08:00 History Metoprolol [Lopressor] 25 mg PO BID 06/06/20 06/06/20 06/05/20 History Lsssl-Jxenphl-Mrdfymjs Tablet 1 unit PO DAILY 06/06/20 06/06/20 06/05/20 08:00 History Rosuvastatin Calcium 40 mg PO HS 06/06/20 06/06/20 06/05/20 21:00 History Semaglutide [Rybelsus] 7 mg PO DAILY 06/06/20 06/06/20 06/05/20 08:00 History Triamterene/Hydrochlorothiazid 37.5 mg PO DAILY 06/06/20 06/06/20 06/05/20 History [Triamterene-Hctz 37.5-25 mg Cp] Active Meds: Active Medications Acetaminophen (Acetaminophen 325 Mg Tab) 650 mg PO Q4H PRN PRN Reason: Pain MILD(1-3)/Fever >100.5/[place] Aspirin (Aspirin Ec 81 Mg Tab) 81 mg PO QDAY [facility] Last Admin: 06/06/20 09:56 Dose: 81 mg Documented by: Cilostazol (Cilostazol 100 Mg Tab) 100 mg PO BID [facility] Last Admin: 06/06/20 09:56 Dose: 100 mg Documented by: Clopidogrel Bisulfate (Clopidogrel 75 Mg Tab) 75 mg PO QDAY [facility] Last Admin: 06/06/20 09:56 Dose: 75 mg Documented by: Dextrose (Dextrose 50% In Water (25gm) 50 Ml Syringe) 50 ml IV Q30MIN PRN; Protocol PRN Reason: Hypoglycemia Heparin Sodium (Porcine) (Heparin 5,000 Unit/1 Ml Vial) 5,000 unit SUB-Q Q8HR [facility] Last Admin: 06/06/20 13:12 Dose: 5,000 unit Documented by: Hydralazine HCl (Hydralazine 20 Mg/1 Ml Inj) 5 mg IV Q30MIN PRN PRN Reason: Hypertension Sodium Chloride (Nacl 0.45% 1000 Ml) 1,000 mls @ 100 mls/hr IV DIRECT [facility] Last Admin: 06/06/20 01:33 Dose: 100 mls/hr Documented by: Cefepime HCl (Cefepime/Ns 1 Gm/100 Ml) 1 gm in 100 mls @ 200 mls/hr IV Q12H [facility]; Protocol Last Admin: 06/06/20 09:55 Dose: 200 mls/hr Documented by: Insulin Human Lispro (Insulin Lispro 100 Unit/Ml) 0 unit SUB-Q ACHS ERNIE; Protocol Last Admin: 06/06/20 12:49 Dose: 3 unit Documented by: Linezolid (Linezolid 600 Mg Tab) 600 mg PO Q12HR [facility]; Protocol Metoprolol Tartrate (Metoprolol Tartrate 25 Mg Tab) 25 mg PO BID [facility] Morphine Sulfate (Morphine 2 Mg/1 Ml Inj) 2 mg IV Q4H PRN PRN Reason: Pain, Moderate (4-6) Last Admin: 06/06/20 12:53 Dose: 2 mg Documented by: Ondansetron HCl (Ondansetron 4 Mg/2 Ml Inj) 4 mg IV Q8H PRN PRN Reason: Nausea And Vomiting Pantoprazole Sodium (Pantoprazole 40 Mg Tab) 40 mg PO QDAC [facility] Last Admin: 06/06/20 08:50 Dose: 40 mg Documented by: Sodium Chloride (Sodium Chloride 0.9% 10 Ml Flush Syringe) 10 ml IV BID [facility] Last Admin: 06/06/20 09:55 Dose: 10 ml Documented by: Sodium Chloride (Sodium Chloride 0.9% 10 Ml Flush Syringe) 10 ml IV PRN PRN PRN Reason: LINE FLUSH Review of Systems All systems: negative Exam - Constitutional Vitals: Temp Pulse Resp BP Pulse Ox 97.9 F 90 20 149/65 100 06/06/20 10:17 06/06/20 10:17 06/06/20 10:17 06/06/20 10:17 06/06/20 10:17 General appearance: Present: no acute distress - Respiratory Respiratory effort: normal - Extremities Extremities: pulses intact (palpable right DP ), abnormal (right first toe with callus on lateral aspect, there appears to be a possible superficial fluid collecion just deep to the callus) Extremity abnormal: tenderness (right first toe near the ulceration) Results - Labs CBC & Chem 7: 06/07/20 05:46 06/07/20 05:46 Labs: Abnormal lab results 06/05/20 06/05/20 06/05/20 Range/Units 17:01 17:01 22:57 RBC (3.65-5.03) M/mm3 Lymph % (Auto) (13.4-35.0) % [place] % (Auto) 8.4 H (0.0-7.3) % Chloride (98-107) mmol/L BUN 46 H (7-17) mg/dL Creatinine 2.3 H (0.6-1.2) mg/dL Glucose 285 H (65-100) mg/dL POC Glucose 250 H (70-105) mg/dL Calcium (8.4-10.2) mg/dL Albumin 3.6 L (3.9-5) g/dL 06/06/20 06/06/20 06/06/20 Range/Units 05:57 05:57 08:16 RBC 3.48 L (3.65-5.03) M/mm3 Lymph % (Auto) 40.9 H (13.4-35.0) % [place] % (Auto) 9.5 H (0.0-7.3) % Chloride 108.9 H (98-107) mmol/L BUN 36 H (7-17) mg/dL Creatinine 2.2 H (0.6-1.2) mg/dL Glucose 154 H (65-100) mg/dL POC Glucose 149 H (70-105) mg/dL Calcium 8.3 L (8.4-10.2) mg/dL Albumin (3.9-5) g/dL 06/06/20 Range/Units 11:35 RBC (3.65-5.03) M/mm3 Lymph % (Auto) (13.4-35.0) % [place] % (Auto) (0.0-7.3) % Chloride (98-107) mmol/L BUN (7-17) mg/dL Creatinine (0.6-1.2) mg/dL Glucose (65-100) mg/dL POC Glucose 241 H (70-105) mg/dL Calcium (8.4-10.2) mg/dL Albumin (3.9-5) g/dL Assessment and Plan The patient is a 55 year old female with a history of PVD and a nonhealing wound. She had a recent revascularization and has a palpable right DP. I will order an arterial duplex of the lower extremities to confirm adequate flow for healing. She will likely require unroofing of the callus to drain the infe ction.
[2020-06-06] MEDS: METOPROLOL TARTRATE 25 MG TAB PO SCH (21:32)
[2020-06-06] MEDS: LINEZOLID 600 MG TAB PO SCH (21:33)
[2020-06-06] MEDS: NON-FORMULARY EACH (Insulin Glargine,Hum.Rec.Anlog [Basaglar Kwikpen U-100] 100 UNIT/ML In SUB-Q SCH (22:34)
[2020-06-07] MEDS: MORPHINE 2 MG/1 ML INJ IV PRN ×2 (02:21→22:00)
[2020-06-07] MEDS: HEPARIN 5,000 UNIT/1 ML VIAL SUB-Q SCH ×3 (05:27→22:00)
[2020-06-07 06:52] LABS: Basophils % (Auto) 0.4 % (0.0-1.8); Eosinophils # (Auto) 0.2 K/mm3 (0.0-0.4); Eosinophils % (Auto) 2.8 % (0.0-4.3); Hematocrit 31.7 % (30.3-42.9); Hemoglobin 10.3 gm/dl (10.1-14.3); Lymphocytes # (Auto) 1.6 K/mm3 (1.2-5.4); Lymphocytes % (Auto) 21.9 % (13.4-35.0); Mean Corpuscular HGB Conc 33 % (30-34); Mean Corpuscular Volume 87 fl (79-97); Monocytes # (Auto) 0.5 K/mm3 (0.0-0.8); Monocytes % (Auto) 6.9 % (0.0-7.3); Platelet Count 329 K/mm3 (140-440); Red Blood Count 3.63 M/mm3 (3.65-5.03); Red Cell Distribution Width 14.7 % (13.2-15.2)
[2020-06-07 07:17] LABS: Albumin 3.1 g/dL (3.9-5); Calcium 8.8 mg/dL (8.4-10.2)
[2020-06-07] MEDS: INSULIN LISPRO 100 UNIT/ML SUB-Q SCH ×8 (07:34→22:00)
[2020-06-07] MEDS: CLOPIDOGREL 75 MG TAB PO SCH (10:00)
[2020-06-07] MEDS: METOPROLOL TARTRATE 25 MG TAB PO SCH ×2 (10:00→22:00)
[2020-06-07] MEDS: PANTOPRAZOLE 40 MG TAB PO SCH (10:00)
[2020-06-07] MEDS: LINEZOLID 600 MG TAB PO SCH ×2 (10:00→22:00)
[2020-06-07] MEDS: CEFEPIME/NS 1 GM/100 ML 1 GM/100 ML BAG IV SCH ×2 (10:01→21:00)
[2020-06-07] MEDS: CILOSTAZOL 100 MG TAB PO SCH ×2 (10:01→22:00)
[2020-06-07] MEDS: ASPIRIN EC 81 MG TAB PO SCH (10:01)
[2020-06-07] MEDS: CHOLECALCIFEROL (VIT D3) 1000 UNIT (25 mcg) TAB PO SCH (10:31)
[2020-06-07] MEDS: amLODIPine 10 MG TAB PO SCH (10:31)
[2020-06-07] MEDS: FERROUS GLUCONATE 324 MG TAB PO SCH (10:35)
--- NOTE | 2020-06-07 11:12 | Progress Note ---
Assessment and Plan Assessment and plan: 55 years old female with history of diabetes and hypertension , chronic kidney disease stage III was brought to the hospital of right great toe pain. Patient is status post atherosclerotic procedure to open up her arteries and veins in her right leg about 1 week ago. Patient states that her ulcer on her right toe was doing well until approximately 2 days ago when it became painful and appeared not to be healing. Patient states he went to her primary care doctor today and upon evaluation she says she was told to get in contact with Dr. Saucedo who did the procedure on the patient. Hospital course 06/06. Patient was found to have cellulitis and started on IV antibiotics. Vascular surgeon ID consulted. Patient may need to have vascular studies performed during this admission. 06/07. She complains of right foot pain. Continue to adjust pain medications. Vascular surgery following. Blood glucose elevated so increased short acting insulin Problem --Cellulitis of great toe of right foot Continue Zyvox and cefepime Vascular surgery following ID recommendations appreciated --Possible gangrene of the right big toe Vascular surgery on board May need revascularization during this hospitalization --Diabetes type 2, controlled Insulin regimen --Hypertension Hydralazine as needed --ELIA versus CKD Avoid nephrotoxic medications History Interval history: No new complaints this morning Vascular surgery to see Remains on IV antibiotics Blood glucose elevated Hospitalist Physical - Physical exam Narrative exam: VITAL SIGNS: Reviewed. GENERAL: Awake HEAD: No signs of head trauma. EYES: Pupils are equal. Extraocular motions intact. MOUTH: Oropharynx is normal. NECK: No adenopathy, no JVD. CHEST: Chest with diminished breath sounds bilaterally. No wheezes, rales, or rhonchi. CARDIAC: normal S1 and S2, without murmurs, gallops, or rubs. ABDOMEN: Soft, non tender and non distended. No rebound or guarding, and no masses palpated. Bowel Sounds normal. MUSCULOSKELETAL: RLE-slight lower extremity edema with hyperpigmented big toe, tender to touch, distal pulses poorly perceptible NEUROLOGIC EXAM: Alert and oriented x3. No focal neurologic deficits SKIN: No obvious lesions - Constitutional Vitals: Temp Pulse Resp BP Pulse Ox 98.0 F 101 H 18 169/94 98 06/07/20 08:37 06/07/20 08:37 06/07/20 08:37 06/07/20 08:37 06/07/20 08:37 Results - Labs CBC & Chem 7: 06/07/20 05:46 06/07/20 05:46 Labs: Laboratory Last Values WBC 7.3 K/mm3 (4.5-11.0) 06/07/20 05:46 RBC 3.63 M/mm3 (3.65-5.03) L 06/07/20 05:46 Hgb 10.3 gm/dl (10.1-14.3) 06/07/20 05:46 Hct 31.7 % (30.3-42.9) 06/07/20 05:46 MCV 87 fl (79-97) 06/07/20 05:46 MCH 29 pg (28-32) 06/07/20 05:46 MCHC 33 % (30-34) 06/07/20 05:46 RDW 14.7 % (13.2-15.2) 06/07/20 05:46 Plt Count 329 K/mm3 (140-440) 06/07/20 05:46 Lymph % (Auto) 21.9 % (13.4-35.0) 06/07/20 05:46 [place] % (Auto) 6.9 % (0.0-7.3) 06/07/20 05:46 Eos % (Auto) 2.8 % (0.0-4.3) 06/07/20 05:46 Baso % (Auto) 0.4 % (0.0-1.8) 06/07/20 05:46 Lymph # (Auto) 1.6 K/mm3 (1.2-5.4) 06/07/20 05:46 [place] # (Auto) 0.5 K/mm3 (0.0-0.8) 06/07/20 05:46 Eos # (Auto) 0.2 K/mm3 (0.0-0.4) 06/07/20 05:46 Baso # (Auto) 0.0 K/mm3 (0.0-0.1) 06/07/20 05:46 Seg Neutrophils % 68.0 % (40.0-70.0) 06/07/20 05:46 Seg Neutrophils # 4.9 K/mm3 (1.8-7.7) 06/07/20 05:46 Sodium 140 mmol/L (137-145) 06/07/20 05:46 Potassium 4.1 mmol/L (3.6-5.0) 06/07/20 05:46 Chloride 106.3 mmol/L (98-107) 06/07/20 05:46 Carbon Dioxide 21 mmol/L (22-30) L 06/07/20 05:46 Anion Gap 17 mmol/L 06/07/20 05:46 BUN 38 mg/dL (7-17) H 06/07/20 05:46 Creatinine 2.2 mg/dL (0.6-1.2) H 06/07/20 05:46 Estimated GFR 28 ml/min 06/07/20 05:46 BUN/Creatinine Ratio 17 % 06/07/20 05:46 Glucose 273 mg/dL (65-100) H 06/07/20 05:46 POC Glucose 252 mg/dL (70-105) H 06/06/20 22:28 Lactic Acid 1.30 mmol/L (0.7-2.0) 06/05/20 17:01 Calcium 8.8 mg/dL (8.4-10.2) 06/07/20 05:46 Total Bilirubin 0.20 mg/dL (0.1-1.2) 06/07/20 05:46 AST 20 units/L (5-40) 06/07/20 05:46 ALT 33 units/L (7-56) 06/07/20 05:46 Alkaline Phosphatase 89 units/L (35-129) 06/07/20 05:46 Total Protein 6.5 g/dL (6.3-8.2) 06/07/20 05:46 Albumin 3.1 g/dL (3.9-5) L 06/07/20 05:46 Albumin/Globulin Ratio 0.9 % 06/07/20 05:46 Microbiology: Microbiology 06/05/20 17:57 Peripheral/Venous Blood Culture - Preliminary NO GROWTH AFTER 24 HOURS 06/05/20 17:57 Peripheral/Venous Blood Culture - Preliminary NO GROWTH AFTER 24 HOURS [place]/IV: Voiding Method External Female Catheter Active Medications - Current Medications Current Medications: Generic Name Dose Route Start Last Admin Trade Name Freq PRN Reason Stop Dose Admin Acetaminophen 650 mg 06/05/20 22:09 Acetaminophen 325 Mg Tab PO Q4H PRN Pain MILD(1-3)/Fever >100.5/[place] Amlodipine Besylate 10 mg 06/07/20 10:00 06/07/20 10:31 Amlodipine 10 Mg Tab PO 10 mg QDAY ERNIE Administration Aspirin 81 mg 06/06/20 10:00 06/07/20 10:01 Aspirin Ec 81 Mg Tab PO 81 mg QDAY ERNIE Administration Atorvastatin Calcium 40 mg 06/07/20 22:00 Atorvastatin 40 Mg Tab PO QHS ERNIE Cholecalciferol 1,000 unit 06/07/20 10:00 06/07/20 10:31 Cholecalciferol (Vit D3) 1000 Unit (25 Mcg) Tab PO 1,000 unit QDAY ERNIE Administration Cilostazol 100 mg 06/05/20 23:45 06/07/20 10:01 Cilostazol 100 Mg Tab PO 100 mg BID ERNIE Administration Clopidogrel Bisulfate 75 mg 06/06/20 10:00 06/07/20 10:00 Clopidogrel 75 Mg Tab PO 75 mg QDAY ERNIE Administration Dextrose 50 ml 06/05/20 22:09 Dextrose 50% In Water (25gm) 50 Ml Syringe IV Q30MIN PRN Hypoglycemia Protocol Ferrous Gluconate 324 mg 06/07/20 10:00 06/07/20 10:35 Ferrous Gluconate 324 Mg Tab PO Not Given QDAY ERNIE Heparin Sodium (Porcine) 5,000 unit 06/06/20 06:00 06/07/20 05:27 Heparin 5,000 Unit/1 Ml Vial SUB-Q 5,000 unit Q8HR ERNIE Administration Hydralazine HCl 5 mg 06/05/20 22:45 06/07/20 01:43 Hydralazine 20 Mg/1 Ml Inj IV 5 mg Q30MIN PRN Administration Hypertension Sodium Chloride 1,000 mls @ 100 mls/hr 06/05/20 23:00 06/06/20 01:33 Nacl 0.45% 1000 Ml IV 100 mls/hr DIRECT ERNIE Administration Cefepime HCl 1 gm in 100 mls @ 200 mls/hr 06/06/20 09:00 06/07/20 10:01 Cefepime/Ns 1 Gm/100 Ml IV 200 mls/hr Q12H ERNIE Administration Protocol Insulin Human Lispro 0 unit 06/06/20 19:00 06/07/20 10:10 Insulin Lispro 100 Unit/Ml SUB-Q 1 unit ACHS ERNIE Administration Protocol Insulin Human Lispro 6 unit 06/07/20 09:40 06/07/20 10:19 Insulin Lispro 100 Unit/Ml SUB-Q 6 unit AC ERNIE Administration Linezolid 600 mg 06/06/20 22:00 06/07/20 10:00 Linezolid 600 Mg Tab PO 600 mg Q12HR ERNIE Administration Protocol Metoprolol Tartrate 25 mg 06/06/20 22:00 06/07/20 10:00 Metoprolol Tartrate 25 Mg Tab PO 25 mg BID ERNIE Administration Miscellaneous Medication 31 units 06/06/20 22:00 06/06/20 22:34 Insulin Glargine,Hum.Rec.Anlog [Basaglqueenie Alvarengapen U-100] SUB-Q 31 units HS ERNIE Administration Morphine Sulfate 2 mg 06/05/20 22:09 06/07/20 02:21 Morphine 2 Mg/1 Ml Inj IV 2 mg Q4H PRN Administration Pain, Moderate (4-6) Ondansetron HCl 4 mg 06/05/20 22:09 Ondansetron 4 Mg/2 Ml Inj IV Q8H PRN Nausea And Vomiting Pantoprazole Sodium 40 mg 06/06/20 07:30 06/07/20 10:00 Pantoprazole 40 Mg Tab PO 40 mg QDAC ERNIE Administration Sodium Chloride 10 ml 06/06/20 10:00 06/07/20 10:09 Sodium Chloride 0.9% 10 Ml Flush Syringe IV 10 ml BID ERNIE Administration Sodium Chloride 10 ml 06/05/20 22:09 Sodium Chloride 0.9% 10 Ml Flush Syringe IV PRN PRN LINE FLUSH Nutrition/Malnutrition Assess - Dietary Evaluation Nutrition/Malnutrition Findings: Nutrition Notes Start: 06/06/20 08:51 Freq: Status: Active Protocol: Document 06/06/20 08:51 CW (Rec: 06/06/20 09:08 CW [id number]) Nutrition Notes Need for Assessment generated from: MD Order,Education Initial or Follow up Assessment Current Diagnosis CKD(stage I-IV),Diabetes, Hypertension Other Pertinent Diagnosis Gangrene Current Diet Consistent Carbohydrate Labs/Tests BUN 36 Cr 2.2 BG 154 Pertinent Medications 1/2 NS at 100 ml/h Insulin(self adminstered) Height 5 ft 5 in Weight 117.2 kg [place] Body Weight (kg) 56.81 BMI 43.0 Intake Prior to Admission Good Weight Status Morbidly Obese Subjective/Other Information MD screen for diet education. Spoke with pt regarding healtful carbohydrate counting Pt displayed moderate interest. Reinforcement may be necessary to ensure understanding. Pt does not want Ensure supplements. Request double portions and accepted sandeep for wound healing. Requested soda with each meal. Discussed the kayla reprocussions of increased soda intake. Percent of energy/protein needs met: 56%/43% Burn Absent Trauma Absent GI Symptoms None Skin Integrity/Comment Cellulitis on toe on RLE Current % PO Fair (50-74%) Minimum of two criteria No physical signs of malnutrition #1 Nutrition Diagnosis Increased nutrient needs ( specify in comment below) Comments: protein Etiology wound healing As Evidenced by Signs and Symptoms wound on RLE Is patient on ventilator? No Is Patient Ambulatory and/or Out of Bed Yes REE-(Blanchard-St. Jeor-ambulatory/OOB) [ 2291.744 NUTR.[id number]] Kcal/Kg value to use for calculation 15 Approximate Energy Requirements Using 1758 kcal/Kg Calculation Used for Recommendations Kcal/kg Additional Notes protein needs: 104 - 131g (1.2 - 1.5g/kg AdjBW 87kg for wound healing needs) Fluid needs: 1 ml/ kcal or per MD order Nutrition Intervention Change Diet Order: Continue Consistent Carbohydrate diet Add Supplement/Snack (indicate name/kcal Sandeep /protein ) Provides kCal: 190 Provides Protein (gm) 5 Teaching Recipient Patient Learning Readiness Fair Teaching Methods Discussion,Handout Response to Teaching Verbalize understanding, Reinforcement needed Education Handouts Provided Consistent Carbohydrate Diet RD phone number provided Yes Patient aware of follow up options Yes Goal #1 Maintain PO intake that meets at lest 80% of kcal and protein needs Goal #2 Wound healing Goal #3 Understand importance for Consistent Carbohydrate diet Anticipated Discharge Needs: Consistent Carbohydrate diet and Sandeep BID until wound healed Follow-Up By: 06/09/20 Additional Comments F/U PO intake, diet education follow up, and ONS tolerance
[2020-06-07] MEDS: SODIUM CHLORIDE 0.45% 1000 ML 1,000 ML IV SCH (13:23)
--- NOTE | 2020-06-07 15:26 | Progress Note ---
Assessment and Plan Cultures: 06/05/2020 blood culture: In process A/P: 55-year-old female with hypertension, diabetes, CKD stage III was admitted to the hospital with complaints of right great toe pain. Patient reports she recently underwent revascularization procedure by Dr. Saucedo as an outpatient: #Right foot and great toe cellulitis: Also with underlying vascular insufficiency. No open wound or drainage. Cannot obtain cultures. Treat with empiric antibiotics. Dr. Fink also following. #Peripheral vascular disease: Vascular consulted. #ELIA versus CKD: Renally dose antibiotics. Avoiding vancomycin. #Diabetes mellitus: maintain glycemic control. Recs: -Empiric IV cefepime plus PO Zyvox for now -Follow-up vascular recs -If calcium removed please obtain cultures to guide antibiotics. Fatimah Almeida MD [facility] O: [phone] F: [phone] Subjective Date of service: 06/07/20 Interval history: Afebrile, normal white count. Blood cultures remain negative. Objective - Exam Narrative Exam: Physical Exam: Constitutional: Alert, cooperative. No acute distress Head, Ears, Nose: Normocephalic, atraumatic. External ears, nose normal Eyes: Conjunctivae/corneas clear. No icterus. No ptosis. Neck: Supple, no meningeal signs Cardiovascular: S1, S2 normal. Respiratory: Good air entry, clear to auscultation bilaterally GI: Soft, non-tender; bowel sounds normal. No peritoneal signs Musculoskeletal: Right great toe with superficial ulceration, right foot with mild warmth and tenderness Skin: No rash or abscess Hem/Lymphatic: No palpable cervical or supraclavicular nodes. No lymphangitis Psych: Mood ok. Affect normal Neurological: Awake, alert, oriented. No gross abnormality - Constitutional Vitals: Vital Signs Temp Pulse Resp BP Pulse Ox 98.0 F 101 H 18 169/94 98 06/07/20 08:37 06/07/20 08:37 06/07/20 08:37 06/07/20 08:37 06/07/20 08:37 Temperature -Last 24 Hours Temperature 98.0 F Temperature 98.9 F Temperature 98.7 F Temperature 99.0 F - Labs CBC & Chem 7: 06/07/20 05:46 06/07/20 05:46 Labs: Abnormal lab results 06/06/20 06/06/20 06/06/20 Range/Units 15:35 20:08 22:28 RBC (3.65-5.03) M/mm3 Carbon Dioxide (22-30) mmol/L BUN (7-17) mg/dL Creatinine (0.6-1.2) mg/dL Glucose (65-100) mg/dL POC Glucose 230 H 280 H 252 H (70-105) mg/dL Albumin (3.9-5) g/dL 06/07/20 06/07/20 06/07/20 Range/Units 05:46 05:46 07:38 RBC 3.63 L (3.65-5.03) M/mm3 Carbon Dioxide 21 L (22-30) mmol/L BUN 38 H (7-17) mg/dL Creatinine 2.2 H (0.6-1.2) mg/dL Glucose 273 H (65-100) mg/dL POC Glucose 259 H (70-105) mg/dL Albumin 3.1 L (3.9-5) g/dL 06/07/20 Range/Units 11:30 RBC (3.65-5.03) M/mm3 Carbon Dioxide (22-30) mmol/L BUN (7-17) mg/dL Creatinine (0.6-1.2) mg/dL Glucose (65-100) mg/dL POC Glucose 258 H (70-105) mg/dL Albumin (3.9-5) g/dL
[2020-06-07] MEDS: NON-FORMULARY EACH (Insulin Glargine,Hum.Rec.Anlog [Basaglar Kwikpen U-100] 100 UNIT/ML In SUB-Q SCH (22:00)
[2020-06-08] MEDS: HEPARIN 5,000 UNIT/1 ML VIAL SUB-Q SCH ×3 (06:01→21:48)
[2020-06-08 06:37] LABS: Basophils % (Auto) 0.5 % (0.0-1.8); Eosinophils # (Auto) 0.2 K/mm3 (0.0-0.4); Eosinophils % (Auto) 3.2 % (0.0-4.3); Hematocrit 29.2 % (30.3-42.9); Hemoglobin 9.7 gm/dl (10.1-14.3); Lymphocytes # (Auto) 2.4 K/mm3 (1.2-5.4); Lymphocytes % (Auto) 31.3 % (13.4-35.0); Mean Corpuscular HGB Conc 33 % (30-34); Mean Corpuscular Volume 88 fl (79-97); Monocytes # (Auto) 0.7 K/mm3 (0.0-0.8); Monocytes % (Auto) 8.8 % (0.0-7.3); Platelet Count 323 K/mm3 (140-440); Red Blood Count 3.33 M/mm3 (3.65-5.03); Red Cell Distribution Width 14.7 % (13.2-15.2)
[2020-06-08 07:01] LABS: Albumin 3.1 g/dL (3.9-5); Calcium 8.9 mg/dL (8.4-10.2)
[2020-06-08] MEDS: INSULIN LISPRO 100 UNIT/ML SUB-Q SCH ×7 (08:01→21:49)
[2020-06-08] MEDS: CEFEPIME/NS 1 GM/100 ML 1 GM/100 ML BAG IV SCH ×2 (09:04→21:48)
[2020-06-08] MEDS: hydrALAZINE 25 MG TAB PO SCH ×3 (09:04→21:48)
[2020-06-08] MEDS: FERROUS GLUCONATE 324 MG TAB PO SCH (09:04)
[2020-06-08] MEDS: amLODIPine 10 MG TAB PO SCH (09:04)
[2020-06-08] MEDS: LINEZOLID 600 MG TAB PO SCH ×2 (09:05→21:48)
[2020-06-08] MEDS: PANTOPRAZOLE 40 MG TAB PO SCH (09:05)
[2020-06-08] MEDS: CILOSTAZOL 100 MG TAB PO SCH ×2 (09:05→21:48)
[2020-06-08] MEDS: CHOLECALCIFEROL (VIT D3) 1000 UNIT (25 mcg) TAB PO SCH (09:05)
[2020-06-08] MEDS: CLOPIDOGREL 75 MG TAB PO SCH (09:05)
[2020-06-08] MEDS: METOPROLOL TARTRATE 25 MG TAB PO SCH ×2 (09:05→21:48)
[2020-06-08] MEDS: ASPIRIN EC 81 MG TAB PO SCH (09:05)
--- NOTE | 2020-06-08 10:08 | Progress Note ---
Assessment and Plan Patient status post revascularization of her right leg. Her foot is warm with some reperfusion edema of her lower leg and foot. I the patient is awaiting her vascular ultrasounds and evaluation by Dr. Fink for possible debridement/wou nd care. Subjective Date of service: 06/08/20 Principal diagnosis: Right toe wound, PVD Interval history: Patient is doing well with no complaints of pain. She does have some reperfusion edema of her lower leg and foot. Dressing changed. No significant purulent drainage identified. There is some darkish discoloration of her first toe. She has not yet undergone vascular ultrasounds. Objective - Constitutional Vitals: Vital Signs - 12hr 06/07/20 06/07/20 06/08/20 22:30 23:07 04:02 Temperature 99.2 F 98.5 F Pulse Rate 100 H 102 H Respiratory 20 18 18 Rate Blood Pressure 173/70 179/72 O2 Sat by Pulse 97 95 Oximetry 06/08/20 07:42 Temperature 98.3 F Pulse Rate 97 H Respiratory 18 Rate Blood Pressure 163/75 O2 Sat by Pulse 96 Oximetry General appearance: Present: no acute distress - EENT Eyes: EOM intact ENT: hearing intact - Neck Neck: supple, normal ROM - Respiratory Respiratory effort: normal Extremities: abnormal (Per HPI) - Gastrointestinal General gastrointestinal: Present: deferred - Genitourinary Female genitourinary: deferred - Psychiatric Psychiatric: appropriate mood/affect, cooperative - Labs CBC & Chem 7: 06/08/20 05:45 06/08/20 05:45 Labs: Abnormal lab results 06/07/20 06/07/20 06/07/20 Range/Units 07:38 11:30 15:36 RBC (3.65-5.03) M/mm3 Hgb (10.1-14.3) gm/dl Hct (30.3-42.9) % [place] % (Auto) (0.0-7.3) % Chloride (98-107) mmol/L BUN (7-17) mg/dL Creatinine (0.6-1.2) mg/dL Glucose (65-100) mg/dL POC Glucose 259 H 258 H 203 H (70-105) mg/dL Albumin (3.9-5) g/dL 06/07/20 06/08/20 06/08/20 Range/Units 22:07 05:45 05:45 RBC 3.33 L (3.65-5.03) M/mm3 Hgb 9.7 L (10.1-14.3) gm/dl Hct 29.2 L (30.3-42.9) % [place] % (Auto) 8.8 H (0.0-7.3) % Chloride 108.4 H (98-107) mmol/L BUN 37 H (7-17) mg/dL Creatinine 2.4 H (0.6-1.2) mg/dL Glucose 155 H (65-100) mg/dL POC Glucose 242 H (70-105) mg/dL Albumin 3.1 L (3.9-5) g/dL 06/08/20 Range/Units 07:40 RBC (3.65-5.03) M/mm3 Hgb (10.1-14.3) gm/dl Hct (30.3-42.9) % [place] % (Auto) (0.0-7.3) % Chloride (98-107) mmol/L BUN (7-17) mg/dL Creatinine (0.6-1.2) mg/dL Glucose (65-100) mg/dL POC Glucose 135 H (70-105) mg/dL Albumin (3.9-5) g/dL Medications & Allergies - Medications Allergies/Adverse Reactions: Allergies No Known Allergies Allergy (Unverified 06/05/20 16:20) Home Medications: Home Medications Medication Instructions Recorded Confirmed Last Taken Type Cholecalciferol (Vitd3)/Vit K2 500 mcg PO DAILY 06/06/20 06/06/20 06/05/20 08:00 History [K2-D3 10,000 Unit Capsule] Ferrous Gluconate 324 MG 324 mg PO DAILY 06/06/20 06/06/20 06/05/20 08:00 History Humalog 100 UNITS/ML Kwikpen See Protocol SQ ACHS 06/06/20 06/06/20 06/05/20 21:00 History Insulin Glargine,Hum.rec.anlog 31 units SQ HS 06/06/20 06/06/20 06/05/20 21:00 History [Basaglar Kwikpen U-100] Losartan/Hydrochlorothiazide 100 mg PO DAILY 06/06/20 06/06/20 06/05/20 08:00 History [Losartan-Hctz 100-25 mg Tab] Mecobalamin [B12 Active] 1,000 mcg PO DAILY 06/06/20 06/06/20 06/05/20 08:00 History Metoprolol [Lopressor] 25 mg PO BID 06/06/20 06/06/20 06/05/20 History Lkece-Hbkyxpz-Axdlsznb Tablet 1 unit PO DAILY 06/06/20 06/06/20 06/05/20 08:00 History Rosuvastatin Calcium 40 mg PO HS 06/06/20 06/06/20 06/05/20 21:00 History Semaglutide [Rybelsus] 7 mg PO DAILY 06/06/20 06/06/20 06/05/20 08:00 History Triamterene/Hydrochlorothiazid 37.5 mg PO DAILY 06/06/20 06/06/20 06/05/20 History [Triamterene-Hctz 37.5-25 mg Cp] Active Medications: Generic Name Dose Route Start Last Admin Trade Name Freq PRN Reason Stop Dose Admin Acetaminophen 650 mg 06/05/20 22:09 Acetaminophen 325 Mg Tab PO Q4H PRN Pain MILD(1-3)/Fever >100.5/[place] Amlodipine Besylate 10 mg 06/07/20 10:00 06/08/20 09:04 Amlodipine 10 Mg Tab PO 10 mg QDAY ERNIE Administration Aspirin 81 mg 06/06/20 10:00 06/08/20 09:05 Aspirin Ec 81 Mg Tab PO 81 mg QDAY ERNIE Administration Atorvastatin Calcium 40 mg 06/07/20 22:00 06/07/20 22:00 Atorvastatin 40 Mg Tab PO 40 mg QHS ERNIE Administration Cholecalciferol 1,000 unit 06/07/20 10:00 06/08/20 09:05 Cholecalciferol (Vit D3) 1000 Unit (25 Mcg) Tab PO 1,000 unit QDAY ERNIE Administration Cilostazol 100 mg 06/05/20 23:45 06/08/20 09:05 Cilostazol 100 Mg Tab PO 100 mg BID ERNIE Administration Clopidogrel Bisulfate 75 mg 06/06/20 10:00 06/08/20 09:05 Clopidogrel 75 Mg Tab PO 75 mg QDAY ERNIE Administration Dextrose 50 ml 06/05/20 22:09 Dextrose 50% In Water (25gm) 50 Ml Syringe IV Q30MIN PRN Hypoglycemia Protocol Ferrous Gluconate 324 mg 06/07/20 10:00 06/08/20 09:04 Ferrous Gluconate 324 Mg Tab PO 324 mg QDAY ERNIE Administration Heparin Sodium (Porcine) 5,000 unit 06/06/20 06:00 06/08/20 06:01 Heparin 5,000 Unit/1 Ml Vial SUB-Q 5,000 unit Q8HR ERNIE Administration Hydralazine HCl 5 mg 06/05/20 22:45 06/07/20 01:43 Hydralazine 20 Mg/1 Ml Inj IV 5 mg Q30MIN PRN Administration Hypertension Hydralazine HCl 50 mg 06/08/20 08:00 06/08/20 09:04 Hydralazine 25 Mg Tab PO 50 mg Q8HR ERNIE Administration Sodium Chloride 1,000 mls @ 100 mls/hr 06/05/20 23:00 06/07/20 13:23 Nacl 0.45% 1000 Ml IV 100 mls/hr DIRECT ERNIE Administration Cefepime HCl 1 gm in 100 mls @ 200 mls/hr 06/06/20 09:00 06/08/20 09:04 Cefepime/Ns 1 Gm/100 Ml IV 200 mls/hr Q12H ERNIE Administration Protocol Insulin Human Lispro 0 unit 06/06/20 19:00 06/08/20 08:02 Insulin Lispro 100 Unit/Ml SUB-Q Not Given ACHS ERINE Protocol Insulin Human Lispro 6 unit 06/07/20 09:40 06/08/20 08:01 Insulin Lispro 100 Unit/Ml SUB-Q 6 unit AC ERNIE Administration Linezolid 600 mg 06/06/20 22:00 06/08/20 09:05 Linezolid 600 Mg Tab PO 600 mg Q12HR ERNIE Administration Protocol Metoprolol Tartrate 25 mg 06/06/20 22:00 06/08/20 09:05 Metoprolol Tartrate 25 Mg Tab PO 25 mg BID ERNIE Administration Miscellaneous Medication 31 units 06/06/20 22:00 06/07/20 22:00 Insulin Glargine,Hum.Rec.Anlog [Basaglar Kwikpen U-100] SUB-Q 31 units HS ERNIE Administration Morphine Sulfate 2 mg 06/05/20 22:09 06/07/20 22:00 Morphine 2 Mg/1 Ml Inj IV 2 mg Q4H PRN Administration Pain, Moderate (4-6) Ondansetron HCl 4 mg 06/05/20 22:09 Ondansetron 4 Mg/2 Ml Inj IV Q8H PRN Nausea And Vomiting Pantoprazole Sodium 40 mg 06/06/20 07:30 06/08/20 09:05 Pantoprazole 40 Mg Tab PO 40 mg QDAC ERNIE Administration Sodium Chloride 10 ml 06/06/20 10:00 06/08/20 09:06 Sodium Chloride 0.9% 10 Ml Flush Syringe IV 10 ml BID ERNIE Administration Sodium Chloride 10 ml 06/05/20 22:09 Sodium Chloride 0.9% 10 Ml Flush Syringe IV PRN PRN LINE FLUSH
--- NOTE | 2020-06-08 10:58 | Progress Note ---
Assessment and Plan Assessment and plan: 55 years old female with history of diabetes and hypertension , chronic kidney disease stage III was brought to the hospital of right great toe pain. Patient is status post atherosclerotic procedure to open up her arteries and veins in her right leg about 1 week ago. Patient states that her ulcer on her right toe was doing well until approximately 2 days ago when it became painful and appeared not to be healing. Patient states he went to her primary care doctor today and upon evaluation she says she was told to get in contact with Dr. aSucedo who did the procedure on the patient. Hospital course 06/06. Patient was found to have cellulitis and started on IV antibiotics. Vascular surgeon ID consulted. Patient may need to have vascular studies performed during this admission. 06/07. She complains of right foot pain. Continue to adjust pain medications. Vascular surgery following. Blood glucose elevated so increased short acting insulin 06/08. States she feels better. Plan for vascular studies of the right lower extremity. Problem --Cellulitis of great toe of right foot Continue Zyvox and cefepime Vascular surgery following ID recommendations appreciated --Possible gangrene of the right big toe Vascular surgery on board May need revascularization during this hospitalization Vascular studies pending --Diabetes type 2, controlled Insulin regimen --Hypertension Hydralazine as needed --ELIA Secondary to vasomotor nephropathy Monitor renal function Avoid nephrotoxic medications History Interval history: Plan for US doppler Vascular surgery on board Hospitalist Physical - Physical exam Narrative exam: VITAL SIGNS: Reviewed. GENERAL: Awake HEAD: No signs of head trauma. EYES: Pupils are equal. Extraocular motions intact. MOUTH: Oropharynx is normal. NECK: No adenopathy, no JVD. CHEST: Chest with diminished breath sounds bilaterally. No wheezes, rales, or rhonchi. CARDIAC: normal S1 and S2, without murmurs, gallops, or rubs. ABDOMEN: Soft, non tender and non distended. No rebound or guarding, and no masses palpated. Bowel Sounds normal. MUSCULOSKELETAL: RLE-slight lower extremity edema with hyperpigmented big toe, tender to touch, distal pulses poorly perceptible NEUROLOGIC EXAM: Alert and oriented x3. No focal neurologic deficits SKIN: No obvious lesions - Constitutional Vitals: Temp Pulse Resp BP Pulse Ox 98.3 F 97 H 18 163/75 96 06/08/20 07:42 06/08/20 07:42 06/08/20 07:42 06/08/20 07:42 06/08/20 07:42 Results - Labs CBC & Chem 7: 06/09/20 05:11 06/09/20 05:11 Labs: Laboratory Last Values WBC 7.7 K/mm3 (4.5-11.0) 06/08/20 05:45 RBC 3.33 M/mm3 (3.65-5.03) L 06/08/20 05:45 Hgb 9.7 gm/dl (10.1-14.3) L 06/08/20 05:45 Hct 29.2 % (30.3-42.9) L 06/08/20 05:45 MCV 88 fl (79-97) 06/08/20 05:45 MCH 29 pg (28-32) 06/08/20 05:45 MCHC 33 % (30-34) 06/08/20 05:45 RDW 14.7 % (13.2-15.2) 06/08/20 05:45 Plt Count 323 K/mm3 (140-440) 06/08/20 05:45 Lymph % (Auto) 31.3 % (13.4-35.0) 06/08/20 05:45 Mineral % (Auto) 8.8 % (0.0-7.3) H 06/08/20 05:45 Eos % (Auto) 3.2 % (0.0-4.3) 06/08/20 05:45 Baso % (Auto) 0.5 % (0.0-1.8) 06/08/20 05:45 Lymph # (Auto) 2.4 K/mm3 (1.2-5.4) 06/08/20 05:45 Mineral # (Auto) 0.7 K/mm3 (0.0-0.8) 06/08/20 05:45 Eos # (Auto) 0.2 K/mm3 (0.0-0.4) 06/08/20 05:45 Baso # (Auto) 0.0 K/mm3 (0.0-0.1) 06/08/20 05:45 Seg Neutrophils % 56.2 % (40.0-70.0) 06/08/20 05:45 Seg Neutrophils # 4.3 K/mm3 (1.8-7.7) 06/08/20 05:45 Sodium 142 mmol/L (137-145) 06/08/20 05:45 Potassium 3.8 mmol/L (3.6-5.0) 06/08/20 05:45 Chloride 108.4 mmol/L (98-107) H 06/08/20 05:45 Carbon Dioxide 22 mmol/L (22-30) 06/08/20 05:45 Anion Gap 15 mmol/L 06/08/20 05:45 BUN 37 mg/dL (7-17) H 06/08/20 05:45 Creatinine 2.4 mg/dL (0.6-1.2) H 06/08/20 05:45 Estimated GFR 25 ml/min 06/08/20 05:45 BUN/Creatinine Ratio 15 % 06/08/20 05:45 Glucose 155 mg/dL (65-100) H 06/08/20 05:45 POC Glucose 135 mg/dL (70-105) H 06/08/20 07:40 Lactic Acid 1.30 mmol/L (0.7-2.0) 06/05/20 17:01 Calcium 8.9 mg/dL (8.4-10.2) 06/08/20 05:45 Total Bilirubin 0.30 mg/dL (0.1-1.2) 06/08/20 05:45 AST 17 units/L (5-40) 06/08/20 05:45 ALT 27 units/L (7-56) 06/08/20 05:45 Alkaline Phosphatase 81 units/L (35-129) 06/08/20 05:45 Total Protein 6.4 g/dL (6.3-8.2) 06/08/20 05:45 Albumin 3.1 g/dL (3.9-5) L 06/08/20 05:45 Albumin/Globulin Ratio 0.9 % 06/08/20 05:45 Microbiology: Microbiology 06/05/20 17:57 Peripheral/Venous Blood Culture - Preliminary NO GROWTH AFTER 48 HOURS 06/05/20 17:57 Peripheral/Venous Blood Culture - Preliminary NO GROWTH AFTER 48 HOURS Bowman/IV: Voiding Method Toilet Active Medications - Current Medications Current Medications: Generic Name Dose Route Start Last Admin Trade Name Freq PRN Reason Stop Dose Admin Acetaminophen 650 mg 06/05/20 22:09 Acetaminophen 325 Mg Tab PO Q4H PRN Pain MILD(1-3)/Fever >100.5/[place] Amlodipine Besylate 10 mg 06/07/20 10:00 06/08/20 09:04 Amlodipine 10 Mg Tab PO 10 mg QDAY ERNIE Administration Aspirin 81 mg 06/06/20 10:00 06/08/20 09:05 Aspirin Ec 81 Mg Tab PO 81 mg QDAY ERNIE Administration Atorvastatin Calcium 40 mg 06/07/20 22:00 06/07/20 22:00 Atorvastatin 40 Mg Tab PO 40 mg QHS ERNIE Administration Cholecalciferol 1,000 unit 06/07/20 10:00 06/08/20 09:05 Cholecalciferol (Vit D3) 1000 Unit (25 Mcg) Tab PO 1,000 unit QDAY ERNIE Administration Cilostazol 100 mg 06/05/20 23:45 06/08/20 09:05 Cilostazol 100 Mg Tab PO 100 mg BID ERNIE Administration Clopidogrel Bisulfate 75 mg 06/06/20 10:00 06/08/20 09:05 Clopidogrel 75 Mg Tab PO 75 mg QDAY ERNIE Administration Dextrose 50 ml 06/05/20 22:09 Dextrose 50% In Water (25gm) 50 Ml Syringe IV Q30MIN PRN Hypoglycemia Protocol Ferrous Gluconate 324 mg 06/07/20 10:00 06/08/20 09:04 Ferrous Gluconate 324 Mg Tab PO 324 mg QDAY ERNIE Administration Heparin Sodium (Porcine) 5,000 unit 06/06/20 06:00 06/08/20 06:01 Heparin 5,000 Unit/1 Ml Vial SUB-Q 5,000 unit Q8HR ERNIE Administration Hydralazine HCl 5 mg 06/05/20 22:45 06/07/20 01:43 Hydralazine 20 Mg/1 Ml Inj IV 5 mg Q30MIN PRN Administration Hypertension Hydralazine HCl 50 mg 06/08/20 08:00 06/08/20 09:04 Hydralazine 25 Mg Tab PO 50 mg Q8HR ERNIE Administration Sodium Chloride 1,000 mls @ 100 mls/hr 06/05/20 23:00 06/07/20 13:23 Nacl 0.45% 1000 Ml IV 100 mls/hr DIRECT ERNIE Administration Cefepime HCl 1 gm in 100 mls @ 200 mls/hr 06/06/20 09:00 06/08/20 09:04 Cefepime/Ns 1 Gm/100 Ml IV 200 mls/hr Q12H ERNIE Administration Protocol Insulin Human Lispro 0 unit 06/06/20 19:00 06/08/20 08:02 Insulin Lispro 100 Unit/Ml SUB-Q Not Given ACHS ERNIE Protocol Insulin Human Lispro 6 unit 06/07/20 09:40 06/08/20 08:01 Insulin Lispro 100 Unit/Ml SUB-Q 6 unit AC ERNIE Administration Linezolid 600 mg 06/06/20 22:00 06/08/20 09:05 Linezolid 600 Mg Tab PO 600 mg Q12HR ERNIE Administration Protocol Metoprolol Tartrate 25 mg 06/06/20 22:00 06/08/20 09:05 Metoprolol Tartrate 25 Mg Tab PO 25 mg BID ERNIE Administration Miscellaneous Medication 31 units 06/06/20 22:00 06/07/20 22:00 Insulin Glargine,Hum.Rec.Anlog [Basaglar Kwikpen U-100] SUB-Q 31 units HS ERNIE Administration Morphine Sulfate 2 mg 06/05/20 22:09 06/07/20 22:00 Morphine 2 Mg/1 Ml Inj IV 2 mg Q4H PRN Administration Pain, Moderate (4-6) Ondansetron HCl 4 mg 06/05/20 22:09 Ondansetron 4 Mg/2 Ml Inj IV Q8H PRN Nausea And Vomiting Pantoprazole Sodium 40 mg 06/06/20 07:30 06/08/20 09:05 Pantoprazole 40 Mg Tab PO 40 mg QDAC ERNIE Administration Sodium Chloride 10 ml 06/06/20 10:00 06/08/20 09:06 Sodium Chloride 0.9% 10 Ml Flush Syringe IV 10 ml BID ERNIE Administration Sodium Chloride 10 ml 06/05/20 22:09 Sodium Chloride 0.9% 10 Ml Flush Syringe IV PRN PRN LINE FLUSH Nutrition/Malnutrition Assess - Dietary Evaluation Nutrition/Malnutrition Findings: Nutrition Notes Start: 06/06/20 08:51 Freq: Status: Active Protocol: Document 06/06/20 08:51 CW (Rec: 06/06/20 09:08 CW [id number]) Nutrition Notes Need for Assessment generated from: MD Order,Education Initial or Follow up Assessment Current Diagnosis CKD(stage I-IV),Diabetes, Hypertension Other Pertinent Diagnosis Gangrene Current Diet Consistent Carbohydrate Labs/Tests BUN 36 Cr 2.2 BG 154 Pertinent Medications 1/2 NS at 100 ml/h Insulin(self adminstered) Height 5 ft 5 in Weight 117.2 kg [place] Body Weight (kg) 56.81 BMI 43.0 Intake Prior to Admission Good Weight Status Morbidly Obese Subjective/Other Information MD screen for diet education. Spoke with pt regarding healtful carbohydrate counting Pt displayed moderate interest. Reinforcement may be necessary to ensure understanding. Pt does not want Ensure supplements. Request double portions and accepted sandeep for wound healing. Requested soda with each meal. Discussed the kayla reprocussions of increased soda intake. Percent of energy/protein needs met: 56%/43% Burn Absent Trauma Absent GI Symptoms None Skin Integrity/Comment Cellulitis on toe on RLE Current % PO Fair (50-74%) Minimum of two criteria No physical signs of malnutrition #1 Nutrition Diagnosis Increased nutrient needs ( specify in comment below) Comments: protein Etiology wound healing As Evidenced by Signs and Symptoms wound on RLE Is patient on ventilator? No Is Patient Ambulatory and/or Out of Bed Yes REE-([facility]-ambulatory/OOB) [ 2291.744 NUTR.MSJOOB] Kcal/Kg value to use for calculation 15 Approximate Energy Requirements Using 1758 kcal/Kg Calculation Used for Recommendations Kcal/kg Additional Notes protein needs: 104 - 131g (1.2 - 1.5g/kg AdjBW 87kg for wound healing needs) Fluid needs: 1 ml/ kcal or per MD order Nutrition Intervention Change Diet Order: Continue Consistent Carbohydrate diet Add Supplement/Snack (indicate name/kcal Sandeep /protein ) Provides kCal: 190 Provides Protein (gm) 5 Teaching Recipient Patient Learning Readiness Fair Teaching Methods Discussion,Handout Response to Teaching Verbalize understanding, Reinforcement needed Education Handouts Provided Consistent Carbohydrate Diet RD phone number provided Yes Patient aware of follow up options Yes Goal #1 Maintain PO intake that meets at lest 80% of kcal and protein needs Goal #2 Wound healing Goal #3 Understand importance for Consistent Carbohydrate diet Anticipated Discharge Needs: Consistent Carbohydrate diet and Sandeep BID until wound healed Follow-Up By: 06/09/20 Additional Comments F/U PO intake, diet education follow up, and ONS tolerance
[2020-06-08] MEDS: SODIUM CHLORIDE 0.45% 1000 ML 1,000 ML IV SCH (13:03)
[2020-06-08] MEDS: MORPHINE 2 MG/1 ML INJ IV PRN (15:58)
[2020-06-08] MEDS: cloNIDine 0.1 MG TAB PO SCH (18:22)
[2020-06-08] MEDS: NON-FORMULARY EACH (Insulin Glargine,Hum.Rec.Anlog [Basaglar Kwikpen U-100] 100 UNIT/ML In SUB-Q SCH (21:50)
[2020-06-09] MEDS: SODIUM CHLORIDE 0.45% 1000 ML 1,000 ML IV SCH (02:29)
[2020-06-09 04:26] VITALS: BP 149/59
[2020-06-09] MEDS: cloNIDine 0.1 MG TAB PO SCH (04:28)
[2020-06-09 05:34] LABS: Basophils % (Auto) 0.5 % (0.0-1.8); Eosinophils # (Auto) 0.2 K/mm3 (0.0-0.4); Eosinophils % (Auto) 3.6 % (0.0-4.3); Hematocrit 29.6 % (30.3-42.9); Hemoglobin 9.7 gm/dl (10.1-14.3); Lymphocytes # (Auto) 1.8 K/mm3 (1.2-5.4); Lymphocytes % (Auto) 29.3 % (13.4-35.0); Mean Corpuscular HGB Conc 33 % (30-34); Mean Corpuscular Volume 88 fl (79-97); Monocytes # (Auto) 0.6 K/mm3 (0.0-0.8); Monocytes % (Auto) 9.4 % (0.0-7.3); Platelet Count 308 K/mm3 (140-440); Red Blood Count 3.35 M/mm3 (3.65-5.03); Red Cell Distribution Width 14.7 % (13.2-15.2)
[2020-06-09 05:56] LABS: Calcium 8.4 mg/dL (8.4-10.2)
[2020-06-09] MEDS: hydrALAZINE 25 MG TAB PO SCH (06:21)
[2020-06-09] MEDS: HEPARIN 5,000 UNIT/1 ML VIAL SUB-Q SCH (06:28)
[2020-06-09] MEDS: FERROUS GLUCONATE 324 MG TAB PO SCH (10:30)
[2020-06-09] MEDS: CILOSTAZOL 100 MG TAB PO SCH (10:30)
[2020-06-09] MEDS: ASPIRIN EC 81 MG TAB PO SCH (10:30)
[2020-06-09] MEDS: PANTOPRAZOLE 40 MG TAB PO SCH (10:30)
[2020-06-09] MEDS: LINEZOLID 600 MG TAB PO SCH (10:30)
[2020-06-09] MEDS: CHOLECALCIFEROL (VIT D3) 1000 UNIT (25 mcg) TAB PO SCH (10:30)
[2020-06-09] MEDS: CEFEPIME/NS 1 GM/100 ML 1 GM/100 ML BAG IV SCH (10:30)
[2020-06-09] MEDS: CLOPIDOGREL 75 MG TAB PO SCH (10:30)
[2020-06-09] MEDS: METOPROLOL TARTRATE 25 MG TAB PO SCH (10:30)
--- NOTE | 2020-06-09 11:12 | Vascular Lab Report ---
DUPLEX ARTERIAL DOPPLER EXAMINATION OF THE LOWER EXTREMITIES WITH SPECTRAL ANALYSIS INDICATION: Peripheral vascular disease with right great toe ulcer, status post 4 days right lower ex tremity revascularization procedure, history of diabetes, history of obesity, history of hypertension COMPARISON: Right foot radiograph 06/05/2020 FINDINGS: MATTEO values could not be calculated due to noncompressibility at the ankle per the technologist. Good flow is seen throughout the arterial system on the left. No significant velocity change is seen to suggest a hemodynamically significant segmental stenosis on the left. On the right good flow is seen through most of the arterial system. This includes the dorsalis pedis artery or flow is visualized. However, the posterior tibial artery does not show obvious flow. No oth er areas of obvious segmental stenosis are seen by velocity measurements. IMPRESSION: No obvious flow is detected in the right posterior tibial artery though flow is seen in t he foot. No significant left-sided abnormality is seen. Signer Name: Rufino Lezama MD Signed: 06/09/2020 11:08 AM Workstation Name: [id number]
[2020-06-09] MEDS: INSULIN LISPRO 100 UNIT/ML SUB-Q SCH ×3 (11:15→11:16)
--- NOTE | 2020-06-09 13:16 | Progress Note ---
Assessment and Plan Assessment and plan: 55 years old female with history of diabetes and hypertension , chronic kidney disease stage III was brought to the hospital of right great toe pain. Patient is status post atherosclerotic procedure to open up her arteries and veins in her right leg about 1 week ago. Patient states that her ulcer on her right toe was doing well until approximately 2 days ago when it became painful and appeared not to be healing. Patient states he went to her primary care doctor today and upon evaluation she says she was told to get in contact with Dr. Saucedo who did the procedure on the patient. Hospital course 06/06. Patient was found to have cellulitis and started on IV antibiotics. Vascular surgeon ID consulted. Patient may need to have vascular studies performed during this admission. 06/07. She complains of right foot pain. Continue to adjust pain medications. Vascular surgery following. Blood glucose elevated so increased short acting insulin 06/08. States she feels better. Plan for vascular studies of the right lower extremity. 06/09. Vascular studies pending. Vascular to see. Problem --Cellulitis of great toe of right foot Continue Zyvox and cefepime Vascular surgery following ID recommendations appreciated --Possible gangrene of the right big toe Vascular surgery on board May need revascularization during this hospitalization Vascular studies performed results pending --Diabetes type 2, controlled Insulin regimen --Hypertension Hydralazine as needed --ELIA Secondary to vasomotor nephropathy Monitor renal function Avoid nephrotoxic medications Cr 2.1 History Interval history: Doppler US performed this AM Vascular surgery to see Remains on antibiotics Hospitalist Physical - Physical exam Narrative exam: VITAL SIGNS: Reviewed. GENERAL: Awake HEAD: No signs of head trauma. EYES: Pupils are equal. Extraocular motions intact. MOUTH: Oropharynx is normal. NECK: No adenopathy, no JVD. CHEST: Chest with diminished breath sounds bilaterally. No wheezes, rales, or rhonchi. CARDIAC: normal S1 and S2, without murmurs, gallops, or rubs. ABDOMEN: Soft, non tender and non distended. No rebound or guarding, and no masses palpated. Bowel Sounds normal. MUSCULOSKELETAL: RLE-slight lower extremity edema with hyperpigmented big toe, tender to touch, distal pulses poorly perceptible NEUROLOGIC EXAM: Alert and oriented x3. No focal neurologic deficits SKIN: No obvious lesions - Constitutional Vitals: Temp Pulse Resp BP Pulse Ox 98.0 F 96 H 18 149/59 99 06/09/20 04:09 06/09/20 04:09 06/09/20 04:09 06/09/20 06:21 06/09/20 04:09 Results - Labs CBC & Chem 7: 06/09/20 05:11 06/09/20 05:11 Labs: Laboratory Last Values WBC 6.2 K/mm3 (4.5-11.0) 06/09/20 05:11 RBC 3.35 M/mm3 (3.65-5.03) L 06/09/20 05:11 Hgb 9.7 gm/dl (10.1-14.3) L 06/09/20 05:11 Hct 29.6 % (30.3-42.9) L 06/09/20 05:11 MCV 88 fl (79-97) 06/09/20 05:11 MCH 29 pg (28-32) 06/09/20 05:11 MCHC 33 % (30-34) 06/09/20 05:11 RDW 14.7 % (13.2-15.2) 06/09/20 05:11 Plt Count 308 K/mm3 (140-440) 06/09/20 05:11 Lymph % (Auto) 29.3 % (13.4-35.0) 06/09/20 05:11 [place] % (Auto) 9.4 % (0.0-7.3) H 06/09/20 05:11 Eos % (Auto) 3.6 % (0.0-4.3) 06/09/20 05:11 Baso % (Auto) 0.5 % (0.0-1.8) 06/09/20 05:11 Lymph # (Auto) 1.8 K/mm3 (1.2-5.4) 06/09/20 05:11 [place] # (Auto) 0.6 K/mm3 (0.0-0.8) 06/09/20 05:11 Eos # (Auto) 0.2 K/mm3 (0.0-0.4) 06/09/20 05:11 Baso # (Auto) 0.0 K/mm3 (0.0-0.1) 06/09/20 05:11 Seg Neutrophils % 57.2 % (40.0-70.0) 06/09/20 05:11 Seg Neutrophils # 3.6 K/mm3 (1.8-7.7) 06/09/20 05:11 Sodium 137 mmol/L (137-145) 06/09/20 05:11 Potassium 3.9 mmol/L (3.6-5.0) 06/09/20 05:11 Chloride 107.1 mmol/L (98-107) H 06/09/20 05:11 Carbon Dioxide 24 mmol/L (22-30) 06/09/20 05:11 Anion Gap 10 mmol/L 06/09/20 05:11 BUN 28 mg/dL (7-17) H 06/09/20 05:11 Creatinine 2.1 mg/dL (0.6-1.2) H 06/09/20 05:11 Estimated GFR 29 ml/min 06/09/20 05:11 BUN/Creatinine Ratio 13 % 06/09/20 05:11 Glucose 203 mg/dL (65-100) H 06/09/20 05:11 POC Glucose 175 mg/dL (70-105) H 06/09/20 10:49 Lactic Acid 1.30 mmol/L (0.7-2.0) 06/05/20 17:01 Calcium 8.4 mg/dL (8.4-10.2) 06/09/20 05:11 Total Bilirubin 0.30 mg/dL (0.1-1.2) 06/09/20 05:11 AST 40 units/L (5-40) 06/09/20 05:11 ALT 50 units/L (7-56) 06/09/20 05:11 Alkaline Phosphatase 75 units/L (35-129) 06/09/20 05:11 Total Protein 6.2 g/dL (6.3-8.2) L 06/09/20 05:11 Albumin 3.0 g/dL (3.9-5) L 06/09/20 05:11 Albumin/Globulin Ratio 0.9 % 06/09/20 05:11 Microbiology: Microbiology 06/05/20 17:57 Peripheral/Venous Blood Culture - Preliminary NO GROWTH AFTER 72 HOURS 06/05/20 17:57 Peripheral/Venous Blood Culture - Preliminary NO GROWTH AFTER 72 HOURS 06/08/20 08:07 Foot - Right Wound Culture - Preliminary Bowman/IV: Voiding Method External Female Catheter Active Medications - Current Medications Current Medications: Generic Name Dose Route Start Last Admin Trade Name Freq PRN Reason Stop Dose Admin Acetaminophen 650 mg 06/05/20 22:09 Acetaminophen 325 Mg Tab PO Q4H PRN Pain MILD(1-3)/Fever >100.5/[place] Aspirin 81 mg 06/06/20 10:00 06/09/20 10:30 Aspirin Ec 81 Mg Tab PO 81 mg QDAY ERNIE Administration Atorvastatin Calcium 40 mg 06/07/20 22:00 06/08/20 21:48 Atorvastatin 40 Mg Tab PO 40 mg QHS ERNIE Administration Cholecalciferol 1,000 unit 06/07/20 10:00 06/09/20 10:30 Cholecalciferol (Vit D3) 1000 Unit (25 Mcg) Tab PO 1,000 unit QDAY ERNIE Administration Cilostazol 100 mg 06/05/20 23:45 06/09/20 10:30 Cilostazol 100 Mg Tab PO 100 mg BID ERNIE Administration Clonidine HCl 0.1 mg 06/08/20 19:00 06/09/20 04:28 Clonidine 0.1 Mg Tab PO Not Given Q8H [facility] Clopidogrel Bisulfate 75 mg 06/06/20 10:00 06/09/20 10:30 Clopidogrel 75 Mg Tab PO 75 mg QDAY ERNIE Administration Dextrose 50 ml 06/05/20 22:09 Dextrose 50% In Water (25gm) 50 Ml Syringe IV Q30MIN PRN Hypoglycemia Protocol Ferrous Gluconate 324 mg 06/07/20 10:00 06/09/20 10:30 Ferrous Gluconate 324 Mg Tab PO 324 mg QDAY ERNIE Administration Heparin Sodium (Porcine) 5,000 unit 06/06/20 06:00 06/09/20 06:28 Heparin 5,000 Unit/1 Ml Vial SUB-Q Not Given Q8HR [facility] Hydralazine HCl 5 mg 06/05/20 22:45 06/07/20 01:43 Hydralazine 20 Mg/1 Ml Inj IV 5 mg Q30MIN PRN Administration Hypertension Hydralazine HCl 50 mg 06/08/20 08:00 06/09/20 06:21 Hydralazine 25 Mg Tab PO 50 mg Q8HR ERNIE Administration Sodium Chloride 1,000 mls @ 100 mls/hr 06/05/20 23:00 06/09/20 02:29 Nacl 0.45% 1000 Ml IV 100 mls/hr DIRECT ERNIE Administration Cefepime HCl 1 gm in 100 mls @ 200 mls/hr 06/06/20 09:00 06/09/20 10:30 Cefepime/Ns 1 Gm/100 Ml IV 200 mls/hr Q12H ERNIE Administration Protocol Insulin Human Lispro 0 unit 06/06/20 19:00 06/09/20 11:15 Insulin Lispro 100 Unit/Ml SUB-Q Not Given ACHS ERNIE Protocol Insulin Human Lispro 6 unit 06/07/20 09:40 06/09/20 11:16 Insulin Lispro 100 Unit/Ml SUB-Q Not Given AC ERNIE Linezolid 600 mg 06/06/20 22:00 06/09/20 10:30 Linezolid 600 Mg Tab PO 600 mg Q12HR ERNIE Administration Protocol Metoprolol Tartrate 25 mg 06/06/20 22:00 06/09/20 10:30 Metoprolol Tartrate 25 Mg Tab PO 25 mg BID ERNIE Administration Miscellaneous Medication 31 units 06/06/20 22:00 06/08/20 21:50 Insulin Glargine,Hum.Rec.Anlog [Basaglar Kwikpen U-100] SUB-Q 31 units HS ERNIE Administration Morphine Sulfate 2 mg 06/05/20 22:09 06/08/20 15:58 Morphine 2 Mg/1 Ml Inj IV 2 mg Q4H PRN Administration Pain, Moderate (4-6) Ondansetron HCl 4 mg 06/05/20 22:09 Ondansetron 4 Mg/2 Ml Inj IV Q8H PRN Nausea And Vomiting Pantoprazole Sodium 40 mg 06/06/20 07:30 06/09/20 10:30 Pantoprazole 40 Mg Tab PO 40 mg QDAC RENIE Administration Sodium Chloride 10 ml 06/06/20 10:00 06/09/20 10:30 Sodium Chloride 0.9% 10 Ml Flush Syringe IV 10 ml BID ERNIE Administration Sodium Chloride 10 ml 06/05/20 22:09 Sodium Chloride 0.9% 10 Ml Flush Syringe IV PRN PRN LINE FLUSH Nutrition/Malnutrition Assess - Dietary Evaluation Nutrition/Malnutrition Findings: Nutrition Notes Start: 06/06/20 08:51 Freq: Status: Active Protocol: Document 06/09/20 11:21 RICK (Rec: 06/09/20 11:24 RICK [id number]) Nutrition Notes Initial or Follow up Brief Note Current Diagnosis CKD(stage I-IV),Diabetes, Hypertension Other Pertinent Diagnosis Gangrene Current Diet Consistent Carbohydrate Subjective/Other Information FU for diet education reinforcement and intakes. During first visit, pt asked RD to come back later. During second visit, pt asked RD to come back tomorrow due to feeling very overwhelmed with medical conditions. Nutrition Intervention Follow-Up By: 06/10/20 Additional Comments F/U for PO intake, diet education, and ONS tolerance
--- NOTE | 2020-06-09 13:35 | Discharge Summary ---
Providers - Providers Date of Admission: 06/05/20 21:56 Date of discharge: 06/09/20 Attending physician: AAMIR BURNETTE 06/05/20 19:27 Consult to Physician [CONS] Routine Comment: Consulting Provider: BRANT CANTU Physician Instructions: Reason For Exam: Wound debridement Consult to Physician [CONS] Stat Comment: Consulting Provider: ART RUDD Physician Instructions: Reason For Exam: PVD 06/05/20 22:13 Consult to Dietitian/Nutrition [CONS] Routine Physician Instructions: Reason For Exam: Reason for Consult: Diet education 06/06/20 00:57 Consult to Wound/ET Nurse [CONS] Routine Reason For Exam: wound eval 06/06/20 07:43 Consult to Physician [CONS] Routine Comment: Consulting Provider: AHRRY BROWN Physician Instructions: Reason For Exam: SKin infection after vascular procedure 06/06/20 09:29 Physical Therapy Evaluation and Treat [CONS] Routine Comment: Reason For Exam: debility Mode of Transport?: Wheelchair 06/09/20 13:22 Consult to Case Management [CONS] Routine Services Needed at Discharge: Other Comment:: needs appointment with wound care Hospitalization Condition: Fair Hospital course: 55 years old female with history of diabetes and hypertension , chronic kidney disease stage III was brought to the hospital of right great toe pain. Patient is status post atherosclerotic procedure to open up her arteries and veins in her right leg about 1 week ago. Patient states that her ulcer on her right toe was doing well until approximately 2 days ago when it became painful and appeared not to be healing. Patient states he went to her primary care doctor today and upon evaluation she says she was told to get in contact with Dr. Saucedo who did the procedure on the patient. Hospital course 06/06. Patient was found to have cellulitis and started on IV antibiotics. Vascular surgeon ID consulted. Patient may need to have vascular studies performed during this admission. 06/07. She complains of right foot pain. Continue to adjust pain medications. Vascular surgery following. Blood glucose elevated so increased short acting insulin 06/08. States she feels better. Plan for vascular studies of the right lower extremity. 06/09. Her wound looks better. Vascular studies reveiwed by vascular. She has been cleared for discharge and will continue wound care outpatient and follow up with general surgery in the office. She will complete antibiotics as prescribed. Disposition: [id number] HOME UNDER HOME [facility] Time spent for discharge: 35 mins - Discharge Diagnoses (1) Cellulitis of great toe of right foot Status: Acute (2) Dry gangrene Status: Acute (3) Hypertension Status: Acute (4) Type 2 diabetes mellitus with foot ulcer Status: Acute Core Measure Documentation - Palliative Care Palliative Care/ Comfort Measures: Not Applicable Exam - Constitutional Vitals: Temp Pulse Resp BP Pulse Ox 98.0 F 96 H 18 149/59 99 06/09/20 04:09 06/09/20 04:09 06/09/20 04:09 06/09/20 06:21 06/09/20 04:09 Plan Additional Instructions: Continue antibiotics as prescribed. Follow up with wound care as outpatient. Follow up with vascular surgery and general surgery in the office in 1-2 weeks Follow up with: SUZANNA JOSEPH [Other] - 3-5 Days Prescriptions: Amoxicillin/Potassium Clav [Augmentin 500-125 Tablet] 1 each PO BID 14 Days #28 tablet Ciprofloxacin HCl 250 mg PO BID 14 Days #28 tablet oxyCODONE /ACETAMINOPHEN [Percocet 5/325 mg] 1 tab PO Q6HR PRN #8 tablet PRN Reason: Pain
--- NOTE | 2020-06-09 14:13 | Progress Note ---
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 Patient has nonpalpable pedal pulses, but her feet are warm and well-perfused at this time. She is status post revascularization of the right lower extremity which occurred 05/29/2020. Since then she developed a diabetic wound infection. She refuses to follow-up with her tank welder. Discussed with infectious disease and determined an appropriate antibiotic regimen. Discussed probiotics with patient. Proper use discussed. Explained to patient that she needs to have earlier follow-up than 2 weeks with a wound care physician. I recommended that she follows up with a wound care provider earlier, such as a different physician in her podiatric group if she does like like her original tank welder, but instead she became infuriated, seems to believe that all of these issues she is dealing with have nothing to do with her continued lifestyle choices, and then decided that she may or may not follow-up with me. I explained her it is very important because we do not want her to lose a leg or foot and her peripheral vascular disease makes these very possible. At that point, she was convinced I was "trying to scare her" which I was not. She has severe peripheral vascular disease that had no runoff until I reconstructed this with single-vessel runoff. This definitely places her at risk for limb loss, but she is not willing to understand this, understand the severity of the situation, or understand the consequences of her decisions. This is a difficult social situation in a patient with prior CVA. Hopefully the endovascular procedures I performed will be quite durable which I suspect they will be, but otherwise, she will have a very poor long-term outcome. I explained to her that Subjective Date of service: 06/09/20 Principal diagnosis: Right toe wound, PVD Interval history: I had a long discussion with the patient today about the severity of her underlying peripheral vascular disease, the importance of diabetic control, the importance of wound care follow-up, and the importance of taking her medication. Instead of understanding, she became combative, defending her poor lifestyle choices and justifying all of her behavior instead of focusing on how to change her behavior, modify her behavior, the importance of appropriate wound care and not to soak the wound, and how to treat her underlying disease process. Unfortunately, this happened with her prior wound care provider (tank welder, Dr. Sanon) who tried to explain the changes she needs to make, and instead she became upset with him as well and now refuses to see the podiatric group. Due to her insurance issues, the earliest she could see a wound care physician would be in over 2 weeks, which I told her was too long, and this also got her upset with me. I told her that the podiatry group she was previously seeing would probably see her earlier, and that this hospital could not due to insurance issues. Ultimately, this is a complicated situation due to the patient inability to accept responsibility for her decisions and subsequently improve her choices. She wants to sign out immediately. Objective - Constitutional Vitals: Vital Signs - 12hr 06/09/20 06/09/20 04:09 06:21 Temperature 98.0 F Pulse Rate 96 H Respiratory 18 Rate Blood Pressure 149/59 149/59 O2 Sat by Pulse 99 Oximetry General appearance: Present: no acute distress - EENT Eyes: EOM intact ENT: hearing intact - Respiratory Respiratory effort: normal Extremities: normal temperature, normal color, abnormal (Nonpalpable pedal pulses) - Psychiatric Psychiatric: cooperative, agitated - Labs CBC & Chem 7: 06/09/20 05:11 06/09/20 05:11 Labs: Abnormal lab results 06/08/20 06/08/20 06/09/20 Range/Units 15:32 20:03 05:11 RBC 3.35 L (3.65-5.03) M/mm3 Hgb 9.7 L (10.1-14.3) gm/dl Hct 29.6 L (30.3-42.9) % [place] % (Auto) 9.4 H (0.0-7.3) % Chloride (98-107) mmol/L BUN (7-17) mg/dL Creatinine (0.6-1.2) mg/dL Glucose (65-100) mg/dL POC Glucose 202 H 255 H (70-105) mg/dL Total Protein (6.3-8.2) g/dL Albumin (3.9-5) g/dL 06/09/20 06/09/20 Range/Units 05:11 10:49 RBC (3.65-5.03) M/mm3 Hgb (10.1-14.3) gm/dl Hct (30.3-42.9) % [place] % (Auto) (0.0-7.3) % Chloride 107.1 H (98-107) mmol/L BUN 28 H (7-17) mg/dL Creatinine 2.1 H (0.6-1.2) mg/dL Glucose 203 H (65-100) mg/dL POC Glucose 175 H (70-105) mg/dL Total Protein 6.2 L (6.3-8.2) g/dL Albumin 3.0 L (3.9-5) g/dL Medications & Allergies - Medications Allergies/Adverse Reactions: Allergies No Known Allergies Allergy (Unverified 06/05/20 16:20) Home Medications: Home Medications Medication Instructions Recorded Confirmed Last Taken Type Cholecalciferol (Vitd3)/Vit K2 500 mcg PO DAILY 06/06/20 06/06/20 06/05/20 08:00 History [K2-D3 10,000 Unit Capsule] Ferrous Gluconate 324 MG 324 mg PO DAILY 06/06/20 06/06/20 06/05/20 08:00 History Humalog 100 UNITS/ML Lylepen See Protocol SQ [facility] 06/06/20 06/06/20 06/05/20 21:00 History Insulin Glargine,Hum.rec.anlog 31 units SQ 06/06/20 06/06/20 06/05/20 21:00 History [Basaglar Kwikpen U-100] Losartan/Hydrochlorothiazide 100 mg PO DAILY 06/06/20 06/06/20 06/05/20 08:00 History [Losartan-Hctz 100-25 mg Tab] Mecobalamin [B12 Active] 1,000 mcg PO DAILY 06/06/20 06/06/20 06/05/20 08:00 History Metoprolol [Lopressor] 25 mg PO BID 06/06/20 06/06/20 06/05/20 History Wweuy-Nucpvgg-Xhmdekng Tablet 1 unit PO DAILY 06/06/20 06/06/20 06/05/20 08:00 History Rosuvastatin Calcium 40 mg PO HS 06/06/20 06/06/20 06/05/20 21:00 History Semaglutide [Rybelsus] 7 mg PO DAILY 06/06/20 06/06/20 06/05/20 08:00 History Triamterene/Hydrochlorothiazid 37.5 mg PO DAILY 06/06/20 06/06/20 06/05/20 History [Triamterene-Hctz 37.5-25 mg Cp] Amoxicillin/Potassium Clav 1 each PO BID 14 Days #28 tablet 06/09/20 Unknown Rx [Augmentin 500-125 Tablet] Ciprofloxacin HCl 250 mg PO BID 14 Days #28 tablet 06/09/20 Unknown Rx oxyCODONE /ACETAMINOPHEN [Percocet 1 tab PO Q6HR PRN #8 tablet 06/09/20 Unknown Rx 5/325 mg] Active Medications: Generic Name Dose Route Start Last Admin Trade Name Freq PRN Reason Stop Dose Admin Acetaminophen 650 mg 06/05/20 22:09 Acetaminophen 325 Mg Tab PO Q4H PRN Pain MILD(1-3)/Fever >100.5/[place] Aspirin 81 mg 06/06/20 10:00 06/09/20 10:30 Aspirin Ec 81 Mg Tab PO 81 mg QDAY ERNIE Administration Atorvastatin Calcium 40 mg 06/07/20 22:00 06/08/20 21:48 Atorvastatin 40 Mg Tab PO 40 mg QHS [facility] Administration Cholecalciferol 1,000 unit 06/07/20 10:00 06/09/20 10:30 Cholecalciferol (Vit D3) 1000 Unit (25 Mcg) Tab PO 1,000 unit QDAY ERNIE Administration Cilostazol 100 mg 06/05/20 23:45 06/09/20 10:30 Cilostazol 100 Mg Tab PO 100 mg BID ERNIE Administration Clonidine HCl 0.1 mg 06/08/20 19:00 06/09/20 04:28 Clonidine 0.1 Mg Tab PO Not Given Q8H [facility] Clopidogrel Bisulfate 75 mg 06/06/20 10:00 06/09/20 10:30 Clopidogrel 75 Mg Tab PO 75 mg QDAY [facility] Administration Dextrose 50 ml 06/05/20 22:09 Dextrose 50% In Water (25gm) 50 Ml Syringe IV Q30MIN PRN Hypoglycemia Protocol Ferrous Gluconate 324 mg 06/07/20 10:00 06/09/20 10:30 Ferrous Gluconate 324 Mg Tab PO 324 mg QDAY ERNIE Administration Heparin Sodium (Porcine) 5,000 unit 06/06/20 06:00 06/09/20 06:28 Heparin 5,000 Unit/1 Ml Vial SUB-Q Not Given Q8HR [facility] Hydralazine HCl 5 mg 06/05/20 22:45 06/07/20 01:43 Hydralazine 20 Mg/1 Ml Inj IV 5 mg Q30MIN PRN Administration Hypertension Hydralazine HCl 50 mg 06/08/20 08:00 06/09/20 06:21 Hydralazine 25 Mg Tab PO 50 mg Q8HR ERNIE Administration Sodium Chloride 1,000 mls @ 100 mls/hr 06/05/20 23:00 06/09/20 02:29 Nacl 0.45% 1000 Ml IV 100 mls/hr DIRECT ERNIE Administration Cefepime HCl 1 gm in 100 mls @ 200 mls/hr 06/06/20 09:00 06/09/20 10:30 Cefepime/Ns 1 Gm/100 Ml IV 200 mls/hr Q12H ERNIE Administration Protocol Insulin Human Lispro 0 unit 06/06/20 19:00 06/09/20 11:15 Insulin Lispro 100 Unit/Ml SUB-Q Not Given ACHS [facility] Protocol Insulin Human Lispro 6 unit 06/07/20 09:40 06/09/20 11:16 Insulin Lispro 100 Unit/Ml SUB-Q Not Given AC ERNIE Linezolid 600 mg 06/06/20 22:00 06/09/20 10:30 Linezolid 600 Mg Tab PO 600 mg Q12HR ERNIE Administration Protocol Metoprolol Tartrate 25 mg 06/06/20 22:00 06/09/20 10:30 Metoprolol Tartrate 25 Mg Tab PO 25 mg BID ERNIE Administration Miscellaneous Medication 31 units 06/06/20 22:00 06/08/20 21:50 Insulin Glargine,Hum.Rec.Anlog [Basaglar Kwikpen U-100] SUB-Q 31 units HS ERNIE Administration Morphine Sulfate 2 mg 06/05/20 22:09 06/08/20 15:58 Morphine 2 Mg/1 Ml Inj IV 2 mg Q4H PRN Administration Pain, Moderate (4-6) Ondansetron HCl 4 mg 06/05/20 22:09 Ondansetron 4 Mg/2 Ml Inj IV Q8H PRN Nausea And Vomiting Pantoprazole Sodium 40 mg 06/06/20 07:30 06/09/20 10:30 Pantoprazole 40 Mg Tab PO 40 mg QDAC ERNIE Administration Sodium Chloride 10 ml 06/06/20 10:00 06/09/20 10:30 Sodium Chloride 0.9% 10 Ml Flush Syringe IV 10 ml BID ERNIE Administration Sodium Chloride 10 ml 06/05/20 22:09 Sodium Chloride 0.9% 10 Ml Flush Syringe IV PRN PRN LINE FLUSH
--- NOTE | 2020-06-09 17:10 | Progress Note ---
Assessment and Plan Cultures: 06/05/2020 blood culture: In process A/P: 55-year-old female with hypertension, diabetes, CKD stage III was admitted to the hospital with complaints of right great toe pain. Patient reports she recently underwent revascularization procedure by Dr. Saucedo as an outpatient: #Right foot and great toe cellulitis: Also with underlying vascular insufficiency. No open wound or drainage. Cannot obtain cultures. Treat with empiric antibiotics. Dr. Fink also following. #Peripheral vascular disease: Vascular consulted. #ELIA versus CKD: Renally dose antibiotics. Avoiding vancomycin. #Diabetes mellitus: maintain glycemic control. Recs: -Discussed with Dr. Saucedo, okay to discharge with Augmentin and ciprofloxacin renally dosed -Follow-up in clinic Fatimah Almeida MD [facility] ([facility]) O: [phone] F: [phone] Subjective Date of service: 06/09/20 Principal diagnosis: Right toe wound, PVD Interval history: Afebrile, normal white count. Objective - Exam Narrative Exam: Physical Exam: Constitutional: Alert, cooperative. No acute distress Head, Ears, Nose: Normocephalic, atraumatic. External ears, nose normal Eyes: Conjunctivae/corneas clear. No icterus. No ptosis. Neck: Supple, no meningeal signs Cardiovascular: S1, S2 normal. Respiratory: Good air entry, clear to auscultation bilaterally GI: Soft, non-tender; bowel sounds normal. No peritoneal signs Musculoskeletal: Right great toe with superficial ulceration, right foot with mild warmth and tenderness Skin: No rash or abscess Hem/Lymphatic: No palpable cervical or supraclavicular nodes. No lymphangitis Psych: Mood ok. Affect normal Neurological: Awake, alert, oriented. No gross abnormality - Constitutional Vitals: Vital Signs Temp Pulse Resp BP Pulse Ox 98.0 F 96 H 18 149/59 99 06/09/20 04:09 06/09/20 04:09 06/09/20 04:09 06/09/20 06:21 06/09/20 04:09 Temperature -Last 24 Hours Temperature 98.0 F Temperature 98.4 F Temperature 97.9 F Temperature 97.9 F - Labs CBC & Chem 7: 06/09/20 05:11 06/09/20 05:11 Labs: Abnormal lab results 06/08/20 06/08/20 06/09/20 Range/Units 15:32 20:03 05:11 RBC 3.35 L (3.65-5.03) M/mm3 Hgb 9.7 L (10.1-14.3) gm/dl Hct 29.6 L (30.3-42.9) % [place] % (Auto) 9.4 H (0.0-7.3) % Chloride (98-107) mmol/L BUN (7-17) mg/dL Creatinine (0.6-1.2) mg/dL Glucose (65-100) mg/dL POC Glucose 202 H 255 H (70-105) mg/dL Total Protein (6.3-8.2) g/dL Albumin (3.9-5) g/dL 06/09/20 06/09/20 06/09/20 Range/Units 05:11 10:49 11:49 RBC (3.65-5.03) M/mm3 Hgb (10.1-14.3) gm/dl Hct (30.3-42.9) % [place] % (Auto) (0.0-7.3) % Chloride 107.1 H (98-107) mmol/L BUN 28 H (7-17) mg/dL Creatinine 2.1 H (0.6-1.2) mg/dL Glucose 203 H (65-100) mg/dL POC Glucose 175 H 165 H (70-105) mg/dL Total Protein 6.2 L (6.3-8.2) g/dL Albumin 3.0 L (3.9-5) g/dL
== END 2020-06-09 15:45 | disposition home health service (06) | DRG 602 ==
LOC: ED 16:16 → 4A 21:56
PROVIDERS: ADMIT Hospitalist; ATTEND Internal Medicine
DX: L03.031 Cellulitis of right toe (principal); N17.0 Acute kidney failure with tubular necrosis; I96 Gangrene, not elsewhere classified; E11.52 Type 2 diabetes mellitus with diabetic peripheral angiopathy with gangrene; E11.22 Type 2 diabetes mellitus with diabetic chronic kidney disease; I12.9 Hypertensive chronic kidney disease with stage 1 through stage 4 chronic kidney disease, or unspecified chronic kidney disease; N18.30 Chronic kidney disease, stage 3 unspecified; E11.621 Type 2 diabetes mellitus with foot ulcer; L97.519 Non-pressure chronic ulcer of other part of right foot with unspecified severity; Z86.73 Personal history of transient ischemic attack (TIA), and cerebral infarction without residual deficits
CPT/HCPCS: 36415; 80048; 80053; 82140; 82962; 85025; 87040; 87076; 87116; 87186; 93922; 93925; 94760; 96365; 96366; 96367; 96375; 96376; G0378; A9270-GY; J0360; J0692; J1644; J1815; J2270; J2543; J3370; J7030